=== PATIENT | female | born 1985 | race American Indian/Alaskan Native ===

== ENCOUNTER 2017-02-12 10:12 | Emergency (ER) | payer SELFPAY ==
[2017-02-12 10:22] VITALS: BP 138/101
[2017-02-12] MEDS ORDERED: FUL-GLO OP ONE (13:19)
[2017-02-12] MEDS ORDERED: FIORICET PO ONE (13:19)
[2017-02-12] MEDS ORDERED: TETRACAINE 0.5% OU STA (13:19)
[2017-02-12 13:54] LABS: Basophils % (Auto) 0.7 % (0.0-1.8); Eosinophils % (Auto) 3.1 % (0.0-4.3); Hematocrit 37.9 % (30.3-42.9); Hemoglobin 12.4 gm/dl (10.1-14.3); Mean Corpuscular HGB Conc 33 % (30-34); Mean Corpuscular Hemoglobin 28 pg (28-32); Mean Corpuscular Volume 85 fl (79-97); Platelet Count 319 K/mm3 (140-440); Red Blood Count 4.45 M/mm3 (3.65-5.03); Red Cell Distribution Width 12.5 % (13.2-15.2); White Blood Count 6.9 K/mm3 (4.5-11.0)
[2017-02-12 14:10] LABS: Alanine Aminotransferase 10 units/L (7-56); Albumin 3.4 g/dL (3.9-5); Albumin/Globulin Ratio 1.5 %; Alkaline Phosphatase 47 units/L (35-129); Anion Gap 15 mmol/L; Blood Urea Nitrogen 8 mg/dL (7-17); Calcium 8.6 mg/dL (8.4-10.2); Carbon Dioxide 24 mmol/L (22-30); Chloride 104.3 mmol/L (98-107); Glucose 96 mg/dL (65-100); Potassium 4.8 mmol/L (3.6-5.0); Sodium 138 mmol/L (137-145); Total Protein 5.7 g/dL (6.3-8.2)
--- NOTE | 2017-02-12 14:30 | Cat Scan Report ---
FINAL REPORT PROCEDURE: CT HEAD/BRAIN WO CON TECHNIQUE: Computerized tomography of the head was performed without contrast material. HISTORY: headache x 2 weeks COMPARISON: No prior studies are available for comparison. FINDINGS: Trace mucosal thickening is seen in the right sphenoid sinus. Mastoid air cells appear clear. No calvarial fracture is seen. Cerebral ventricles are normal in size. No acute intracranial hemorrhage or mass effect is seen. No CVA is seen. IMPRESSION: No intracranial abnormality is seen. There may be very minimal changes of chronic sphenoid sinusitis.
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
== END 2017-02-12 15:50 | disposition home or self-care (01) ==
LOC: ED 10:12
DX: S05.01XA Injury of conjunctiva and corneal abrasion without foreign body, right eye, initial encounter (principal); K06.9 Disorder of gingiva and edentulous alveolar ridge, unspecified; J32.9 Chronic sinusitis, unspecified; Z87.891 Personal history of nicotine dependence; X58.XXXA Exposure to other specified factors, initial encounter; Y93.89 Activity, other specified; Y92.89 Other specified places as the place of occurrence of the external cause; Y99.8 Other external cause status
CPT/HCPCS: 36415; 70450; 80053; 84703; 85025; 99284

== ENCOUNTER 2017-02-27 20:10 | Emergency (ER) | payer OTHER ==
[2017-02-28] MEDS ORDERED: MOTRIN PO ONE (01:09)
[2017-02-28 01:13] LABS: Bilirubin,Urine NEG (Negative); Blood,Urine NEG (Negative); Ketones,Urine NEG (Negative); Leukocyte Esterase,Urine NEG (Negative); Nitrite,Urine NEG (Negative); Protein,Urine <15 mg/dL mg/dL (Negative); Urobilinogen,Urine < 2.0 mg/dL (<2.0); WBC,Urine < 1.0 /HPF (0.0-6.0)
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
[2017-02-28 03:46] VITALS: BP 142/98
== END 2017-02-28 03:46 | disposition home or self-care (01) ==
LOC: ED 20:10
DX: S13.4XXA Sprain of ligaments of cervical spine, initial encounter (principal); S39.012A Strain of muscle, fascia and tendon of lower back, initial encounter; Z87.891 Personal history of nicotine dependence; V89.2XXA Person injured in unspecified motor-vehicle accident, traffic, initial encounter; Y93.89 Activity, other specified; Y92.89 Other specified places as the place of occurrence of the external cause; Y99.8 Other external cause status
CPT/HCPCS: 70450; 72072; 72100; 72125; 81001; 81025; 99284

== ENCOUNTER 2017-09-01 09:05 | Emergency (ER) | payer SELFPAY ==
--- NOTE | 2017-09-01 11:32 | Emergency Department Report ---
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 female presents with body aches, sore throat, and right ear pain for 1 day. Patient states symptoms started yesterday. She was around a sick friend last week and felt fine until yesterday. She is taking OTC cold and flu medicine with minimal improvement. She woke up this morning with white discharge in right eye that went away as the day progressed. Denies chest pain, SOB, weakness, nausea, vomiting, and change in appetite. ED Review of Systems ROS: Stated complaint: SORE THROAT Other details as noted in HPI Constitutional: chills, fever Eyes: eye discharge (white discharge on right this morning). denies: eye pain, vision change ENT: ear pain (right ear), throat pain, congestion. denies: dental pain, hearing loss, epistaxis Respiratory: denies: cough, shortness of breath, wheezing Cardiovascular: denies: chest pain, palpitations Gastrointestinal: denies: abdominal pain, nausea, diarrhea Neurological: denies: headache, weakness, paresthesias ED Past Medical Hx - Past Medical History Hx GERD: Yes Hx Headaches / Migraines: Yes Additional medical history: Childbirth, eye irritation, abd mass - Surgical History Additional Surgical History: - Social History Smoking Status: Former Smoker Substance Use Type: None - Medications Home Medications: Home Medications Medication Instructions Recorded Confirmed Last Taken Type Dextromethorphn/Acetaminoph/Cp 20 ml PO PRN PRN 06/20/17 06/22/17 06/20/17 History [Vicks Nyquil Cold & Flu Liquid] Ibuprofen/Pseudoephedrine HCl 1 each PO Q6H PRN 06/20/17 06/22/17 06/20/17 History [Advil Cold & Sinus Caplet] Loratadine/Pseudoephedrine 1 tab PO DAILY 10/06/22/17 06/20/17 History [Claritin-D 24Hr] Aspirin [Aspirin TAB] 650 mg PO QDAY 06/22/17 06/22/17 06/21/17 History HYDROcodone/APAP 5-325 [Sidney 1 each PO Q6HR PRN #20 tablet 06/22/17 Unknown Rx 5/325] Ibuprofen [Motrin] 800 mg PO Q8HR PRN #30 tablet 06/22/17 Unknown Rx Naproxen [Naprosyn] 500 mg PO BID 06/22/17 06/22/17 1 Week Ago History ~06/15/17 Amoxicillin/Potassium Clav 1 each PO BID 7 Days #14 tablet 09/01/17 Unknown Rx [Augmentin 875-125 Tablet] Benzonatate 200 mg PO TID PRN #30 capsule 09/01/17 Unknown Rx Fluticasone [Flonase] 1 spray NS QDAY #1 bottle 09/01/17 Unknown Rx Minor Respiratory Exam - Exam General: Vital signs noted. No distress. Alert and acting appropriately. HEENT: Yes Pharyngeal Erythema, Yes Moist Mucous Membranes, Yes Rhinorrhea, Yes Frontal Tenderness (bilaterally on palpation), No Pharyngeal Exudates, No Conjuctival Injection, No Maxillary Tenderness Ear: Neither TM Bulge, Neither TM Erythema, Neither EAC Pain, Neither EAC Discharge Neck: Yes Supple, No Adenopathy Lungs: Yes Good Air Exchange, Yes Cough, No Wheezes, No Ronchi, No Stridor, No Labored Respirations, No Retractions, No Use of Accessory Muscles, No Other Abnormal Lung Sounds Heart: Yes Regular, No Murmur Abdomen: Yes Normal Bowel Sounds, No Tenderness, No Peritoneal Signs Skin: No Rash, No Edema Neurologic: Alert and oriented, no deficits. Musculoskeletal: Unremarkable. ED Course Vital Signs 09/01/17 09:31 Temperature 99.1 F Pulse Rate 99 H Respiratory 20 Rate Blood Pressure 144/86 O2 Sat by Pulse 100 Oximetry ED Medical Decision Making - Medical Decision Making This is a 32 y.o. female presents with congestion, body aches, right ear pain for 1 day. Taking OTC cold and flu medication. Reports feeling as though something is stuck in her throat. VS WNL Rapid influenza negative, Rapid Strep negative Frontal Sinusitis: Started on augmentin, flonase, and benzonatate. F/U with PCP. Return to ER if fever, SOB, wheezing, chest pain, or symptoms are not improving. Critical care attestation.: If time is entered above; I have spent that time in minutes in the direct care of this critically ill patient, excluding procedure time. ED Disposition Clinical Impression: Acute frontal sinusitis Qualifiers: Recurrence: non-recurrent Qualified Code(s): J01.10 - Acute frontal sinusitis, unspecified Disposition: TO HOME OR SELFCARE Is pt being admited?: No Does the pt Need Aspirin: No Condition: Stable Instructions: Sinusitis (ED) Additional Instructions: Increase fluid intake. Wash hands frequently to decrease the spread of infection. Take tylenol or ibuprofen to control fever. Follow up with Primary Care Provider if symptoms are not improving. Return to ER if chest pain, fever, abdominal pain, SOB, wheezing, or difficulty breathing. Prescriptions: Amoxicillin/Potassium Clav [Augmentin 875-125 Tablet] 1 each PO BID 7 Days #14 tablet Benzonatate 200 mg PO TID PRN #30 capsule PRN Reason: Cough Fluticasone [Flonase] 1 spray NS QDAY #1 bottle Referrals: STARLA GEORGE MD [Primary Care Provider] - 3-5 Days [facility] [Outside] - 3-5 Days [facility] [Outside] - 3-[address] [facility] [Outside] - 3-5 Days Forms: Work/School Release Form(ED) Time of Disposition: 12:25 Print Language: CITIZEN OF [place]
[2017-09-01 13:08] VITALS: BP 138/86
== END 2017-09-01 13:09 | disposition home or self-care (01) ==
LOC: ED 09:05
DX: J01.10 Acute frontal sinusitis, unspecified (principal); K59.00 Constipation, unspecified; G43.909 Migraine, unspecified, not intractable, without status migrainosus
CPT/HCPCS: 87116; 87400; 87430; 99282

== ENCOUNTER 2019-06-05 17:03 | Emergency (ER) | payer OTHER ==
--- NOTE | 2019-06-05 17:23 | Emergency Department Report ---
Blank Doc - Documentation Documentation: 34-year-old female that presents with URI symptoms. Stated is 25 weeks pregna nt. Denies any other symptoms. Denies vaginal bleeding or pelvic pain. This initial assessment/diagnostic orders/clinical plan/treatment(s) is/are subject to change based on patient's health status, clinical progression and re- assessment by fellow clinical providers in the ED. Further treatment and workup at subsequent clinical providers discretion. Patient/guardians urged not to elope from the ED as their condition may be serious if not clinically assessed and managed. Initial orders include: 1- Patient sent to [facility] for further evaluation and treatment
== END 2019-06-05 18:26 | disposition left against medical advice (07) ==
LOC: ED 17:03
DX: R09.81 Nasal congestion (principal); Z53.21 Procedure and treatment not carried out due to patient leaving prior to being seen by health care provider

== ENCOUNTER 2019-07-14 10:07 | Inpatient (IN) | payer MEDICAID ==
[2019-07-14] MEDS ORDERED: hydrALAZINE 20 MG/1 ML INJ ONE (10:26)
[2019-07-14] MEDS ORDERED: METOCLOPRAMIDE 10 MG/2 ML INJ ONE (10:40)
[2019-07-14] MEDS ORDERED: OXYTOCIN 20 UNIT/1000ML DRIP 40,000 MILLIUNITS/2,000 ML BAG IV ONE (10:40)
[2019-07-14] MEDS ORDERED: BICITRA ORAL LIQD 30ML ONE (10:40)
[2019-07-14] MEDS ORDERED: FAMOTIDINE 20 MG/2 ML INJ IV ONE (10:40)
[2019-07-14] MEDS ORDERED: ceFAZolin/Water 2 GM/20 ML 2 GM/20 ML SYRINGE IV ONE (10:40)
[2019-07-14] MEDS ORDERED: SODIUM CHLORIDE 0.9% 500 ML 500 ML IV SCH (10:42)
[2019-07-14 10:43] LABS: Hematocrit 32.5 % (30.3-42.9); Hemoglobin 10.5 gm/dl (10.1-14.3); Mean Corpuscular HGB Conc 32 % (30-34); Mean Corpuscular Volume 89 fl (79-97); Platelet Count 162 K/mm3 (140-440); Red Blood Count 3.64 M/mm3 (3.65-5.03); Red Cell Distribution Width 13.3 % (13.2-15.2)
[2019-07-14] MEDS ORDERED: BICITRA ORAL LIQD 30ML PO SCH (10:44)
[2019-07-14] MEDS ORDERED: FAMOTIDINE 20 MG/2 ML INJ IV SCH (10:44)
[2019-07-14] MEDS ORDERED: METOCLOPRAMIDE 10 MG/2 ML INJ IV SCH (10:44)
[2019-07-14] MEDS ORDERED: LACTATED RINGERS 2,000 ML ONE (10:45)
--- NOTE | 2019-07-14 10:48 | History and Physical Report ---
History of Present Illness Date of examination: 07/14/19 Chief complaint: abdominal pain History of present illness: Pt is a 34 year old -[place] female AIME 09/15/18 at 31w0d pr esents with sudden onset of severe constant abdominal pain over her abdomen since 2 am this morning. She denies vaginal bleeding or leakage of fluid. She presents this morning after 10 am because she did not have anyone to watch her older son. She has had care with Dr Bhandari which she reports was uncomplicated until this past Monday when she was told she had gestational diabetes. She does report being hospitalized earlier this week because of her blood pressure but she was discharged home. Unable to auscultate heart tones. STAT ultrasound ordered. No heart tones noted. Large hematoma visible on ultrasound. Past History Past Medical History: diabetes (gestational ) Past Surgical History: section, other (ovarian cystectomy ) Family/Genetic History: heart disease Social history: no significant social history - Obstetrical History Expected Date of Delivery: 09/15/19 Actual Gestation: 31 Week(s) 0 Day(s) : 3 Para: 1 Hx # Term Pregnancies: 1 Number of Pregnancies: 0 Spontaneous Abortions: 1 Induced : 0 Number of Living Children: 1 Medications and Allergies Allergies Allergy/AdvReac Type Severity Reaction Status Date / Time No Known Allergies Allergy Verified 06/20/17 11:15 Home Medications Medication Instructions Recorded Confirmed Last Taken Type Dextromethorphn/Acetaminoph/Cp 20 ml PO PRN PRN 06/20/17 06/22/17 06/20/17 History [Vicks Nyquil Cold & Flu Liquid] Ibuprofen/Pseudoephedrine HCl 1 each PO Q6H PRN 06/20/17 06/22/17 06/20/17 History [Advil Cold & Sinus Caplet] Loratadine/Pseudoephedrine 1 tab PO DAILY 06/20/17 06/22/17 06/20/17 History [Claritin-D 24Hr] Aspirin [Aspirin TAB] 650 mg PO QDAY 06/22/17 06/22/17 06/21/17 History HYDROcodone/APAP 5-325 [Campbell 1 each PO Q6HR PRN #20 tablet 06/22/17 Unknown Rx 5/325] Ibuprofen [Motrin] 800 mg PO Q8HR PRN #30 tablet 06/22/17 Unknown Rx Naproxen [Naprosyn] 500 mg PO BID 06/22/17 06/22/17 1 Week Ago History ~06/15/17 Amoxicillin/Potassium Clav 1 each PO BID 7 Days #14 tablet 09/01/17 Unknown Rx [Augmentin 875-125 Tablet] Benzonatate 200 mg PO TID PRN #30 capsule 09/01/17 Unknown Rx Fluticasone [Flonase] 1 spray NS QDAY #1 bottle 09/01/17 Unknown Rx Active Meds: Active Medications Sodium Chloride (Nacl 0.9% 500 Ml) 500 mls @ 0 mls/hr IV ONCE ONE Stop: 07/14/19 10:43 Review of Systems All systems: negative - Vital Signs Vital signs: Vital Signs Pulse Pulse Ox 63 98 07/14/19 10:09 07/14/19 10:09 Temp Pulse Resp BP Pulse Ox 57 L 179/99 98 07/14/19 10:12 07/14/19 10:12 07/14/19 10:09 - Physical Exam Breasts: Positive: deferred Cardiovascular: Regular rate Lungs: Positive: Clear to auscultation Abdomen: Positive: tenderness, guarding. Negative: soft Genitourinary (Female): Positive: normal external genitalia Uterus: Positive: enlarged, tender Extremities: Positive: edema (2+) - Obstetrical FHR: other (No heart tones ) Uterine Contraction Monitor Mode: External Uterine Contraction Pattern: Irregular Results Result Diagrams: 07/14/19 10:15 Abnormal lab results 07/14/19 Range/Units 10:15 WBC 16.2 H (4.5-11.0) K/mm3 RBC 3.64 L (3.65-5.03) M/mm3 All other labs normal. Assessment and Plan A: IUP at 31w0d Placental Abruption Demise Severe Preeclampsia Previous x 1 P: Admit to labor and delivery CBC, Coags, Fibrinogen, Panel Prepare for repeat section and other indicated procedures.
[2019-07-14] MEDS ORDERED: LACTATED RINGERS 1,000 ML IV SCH ×2 (11:00→14:00)
[2019-07-14] MEDS ORDERED: ceFAZolin/Water 2 GM/20 ML 2 GM/20 ML SYRINGE IV NR (11:00)
[2019-07-14] MEDS ORDERED: OXYTOCIN 20 UNIT/1000ML DRIP 20 UNITS/1,000 ML BAG IV SCH ×2 (11:00→14:00)
--- NOTE | 2019-07-14 11:10 | Anesthesia Consultation ---
Anesthesia Consult and Med Hx Date of service: 07/14/19 - Airway Anesthetic Teeth Evaluation: Good ROM Head & Neck: Adequate Mental/Hyoid Distance: Adequate Mallampati Class: Class II Intubation Access Assessment: Probably Good - Pulmonary Exam CTA: Yes - Cardiac Exam Cardiac Exam: RRR - Pre-Operative Health Status ASA Pre-Surgery Classification: ASA3, Emergency Proposed Anesthetic Plan: Spinal Nerve Block: abdominal wall - Pulmonary Hx Smoking: Yes (former, quit 4 years ago) - Cardiovascular System Hx Hypertension: Yes (PIH) - Central Nervous System Hx Psychiatric Problems: No - Other Systems Hx Alcohol Use: Yes (occas) Hx Cancer: No - Additional Comments Anesthesia Medical History Comments: Abruption/ demise
--- NOTE | 2019-07-14 11:11 | Anesthesia Day of Surgery ---
Anesthesia Day of Surgery - Day of Surgery Patient Examined: Yes Patient H&P Reviewed: Yes Patient is NPO: Yes
--- NOTE | 2019-07-14 11:13 | Ultrasound Report ---
ULTRASOUND OBSTETRIC INDICATION / CLINICAL INFORMATION: Heart Tones. Clinical Gestational Age (GA): 31 weeks 0 days TECHNIQUE: Transabdominal. COMPARISON: None available. FINDINGS: There is a single intrauterine . Fetus in cephalic presentation. Heart Rate: 0 beats per minute. Placenta: anterior IMPRESSION: Absence of cardiac activity, diagnostic of demise. Signer Name: Jose E Simmons MD Signed: 07/14/2019 11:09 AM Workstation Name: [id number]
[2019-07-14] MEDS ORDERED: MORPHINE 2 MG/1 ML INJ ONE (11:40)
[2019-07-14] MEDS ORDERED: CARBOPROST TROMETHAMINE 250 MCG/1 ML INJ IM ONE (12:02)
[2019-07-14] MEDS ORDERED: miSOPROStol 200 MCG TAB ONE (12:03)
[2019-07-14] MEDS ORDERED: WATER FOR IRRIG STERILE 1,500 ML BOTTLE IR ONE (12:08)
[2019-07-14] MEDS ORDERED: SODIUM CHLORIDE 0.9% IRR 1,500 ML BOTTLE IR ONE (12:08)
[2019-07-14] MEDS ORDERED: MORPHINE 2 MG/1 ML INJ IV ONE (12:36)
--- NOTE | 2019-07-14 13:17 | Operative Report ---
Operative Report Operative Report: Date of procedure: July 14, 2019 Preoperative diagnosis: 1) IUP at 31w0d 2) Placental Abruption 3) Intrauterine Demise 4) Preeclampsia with severe features 5) Previous x 1 Postoperative diagnosis: Same Procedure: Repeat low transverse section Surgeon: Annette Alva M.D. Anesthesia: General endotracheal anesthesia Findings: 1) Non-Viable female , Apgars 0 and 0, weight 1345g, (2 lb 15 oz) in cephalic presentation 2) Blood-tinged peritoneal fluid 3) Couvelaire uterus 4) Normal-appearing ovaries and tubes 5) Uterine cavity filled with clot Estimated blood loss: 1500 mL IV fluids: 1500 mL crystalloid, 500 mL Hetastarch Urine output: 5 mL, blood tinged end of the procedure Drains: Bobby to gravity Specimens: Placenta to pathology Counts correct x 3 Disposition: Stable to PACU Indication for procedure: Pt is a 34 year old at 31w0d with a h/o one prior section presents with severe abdominal pain and elevated blood pressure with findings of preeclampsia with severe features, placental abruption and intrauterine demise. The decision was made to proceed with delivery. Operation in detail: After the risks, benefits, alternatives and complications were explained to the patient she gave informed consent for the procedure. She was subsequently taken to the operating room. A bobby catheter was placed and she was subsequently placed in the dorsal supine position and prepped and draped in a normal sterile fashion. At this time general anesthesia was noted to be adequate. A timeout was performed. A Pfannenstiel skin incision was made with the knife and carried down to the layer of the fascia with the Bovie. The fascia was incised in the midline and the fascial incision was extended bilaterally with the Bovie. The fascial incision was then stretched. The rectus muscles were then in the midline and partially transected for adequate visualization. The peritoneum was then entered sharply. The peritoneal incision was extended with good visualization of the bladder. Egress of blood tinged peritoneal fluid and a Couvelaire uterus were noted. The peritoneal incision was then stretched. An Michael retractor was placed. The bladder blade was placed. The vesicouterine peritoneum was grasped with smooth pickups and incised with Metzenbaum scissors. Metzenbaum scissors were used to extend the incision bilaterally. The bladder flap was then created digitally and the bladder blade was replaced. A transverse incision was made in the lower uterine segment with a knife and extended bilaterally with the bandage scissors with egress of blood clots. The head was delivered without difficulty followed by shoulders and body.The cord was clamped and cut and the was handed to NICU staff in attendance. The placenta was then delivered manually. The uterus was exteriorized and then cleared of all clots and debris. The uterus was noted to be atonic so an additional 20 units of pitocin was added to the IVFs with appropriate response. The hysterotomy was then reapproximated with 0 Vicryl in a running locked fashion. A second layer of the same suture was used in imbricating fashion. The hysterotomy was inspected and hemostasis was noted. The uterus was placed back into the peritoneal cavity and the gutters were irrigated and cleared of all clots and debris. The hysterotomy was again inspected and noted to be hemostatic. Surgicel was placed over the hysterotomy. Hemoblast was placed over the anterior surface of the uterus. The Michael retractor was removed. The peritoneum was reapproximated with 2-0 Vicryl in a running fashion incorporating the rectus muscles. The fascia was reapproximated with 0 Vicryl in a running fashion. The skin was reapproximated with nury. The incision was then covered with a pressure dressing. The procedure was then ended. The patient tolerated the procedure well and was extubated then taken to the PACU in stable condition. All instrument, lap, and needle counts were correct 3.
--- NOTE | 2019-07-14 13:17 | Procedure Note ---
OB Delivery Note - Delivery Date of Delivery: 07/14/19 Surgeon: GERMAN COSTELLO Estimated blood loss: other - Section Preop diagnosis: repeat , other (IUFD, Preeclampsia, Placental Abruption ) Postop diagnosis: same section procedure: section, repeat low transverse Disposition: PACU Narrative: Please see operative report. - Infant A at 1 minute: 0 at 5 minutes: 0 Gender: Female (1345g (2lb 15 oz) @ 1210 pm)
[2019-07-14] MEDS ORDERED: hydrALAZINE 20 MG/1 ML INJ IV PRN (13:40)
[2019-07-14] MEDS ORDERED: NALOXONE 0.4 MG/1 ML INJ IV PRN (13:47)
[2019-07-14] MEDS ORDERED: oxyCODONE /ACETAMINOPHEN 5-325MG TAB PO PRN (13:47)
[2019-07-14] MEDS ORDERED: ONDANSETRON 4 MG/2 ML INJ IV PRN (13:47)
[2019-07-14] MEDS ORDERED: SIMETHICONE 80 MG CHEW TAB PO PRN ×2 (13:47→23:27)
[2019-07-14] MEDS ORDERED: LANOLIN/ZINC/DIMETHICONE (LANSINOH) 7 GM TP PRN (13:47)
[2019-07-14] MEDS ORDERED: MAGNESIUM HYDROXIDE (MOM) ORAL LIQD UDC PO PRN (13:47)
[2019-07-14] MEDS ORDERED: WITCH HAZEL/ GLYCERIN PAD TP PRN (13:47)
[2019-07-14] MEDS ORDERED: NalbUPHINE 10 MG/1 ML INJ IV PRN (13:48)
--- NOTE | 2019-07-14 13:54 | Post Anesthesia Evaluation ---
- Post Anesthesia Evaluation Patient Participated: Yes Airway Patent: Yes Stable Respiratory Function: Yes Nausea/Vomiting: No Temp > 96.8F: Yes Pain Manageable: Yes Adequeate Hydration: Yes Anesthesia Complications: No
[2019-07-14] MEDS ORDERED: MAGNESIUM SULFATE 40GM/1000ML 40 GM/1,000 ML BAG IV SCH (14:00)
[2019-07-14] MEDS ORDERED: CALCIUM GLUCONATE 1000 MG/10 ML INJ IV ONE (14:00)
[2019-07-14] MEDS ORDERED: MAGNESIUM SULFATE 4 GM/100 ML BAG IV ONE (14:00)
[2019-07-14] MEDS ORDERED: ACETAMINOPHEN 325 MG TAB PO SCH (14:00)
[2019-07-14 18:52] LABS: Mean Corpuscular HGB Conc 32 % (30-34); Mean Corpuscular Volume 91 fl (79-97); Red Blood Count 2.03 M/mm3 (3.65-5.03); Red Cell Distribution Width 13.6 % (13.2-15.2)
[2019-07-14 19:00] LABS: Uric Acid 7.3 mg/dL (3.5-7.6)
[2019-07-14 19:02] LABS: INR 1.49 (0.87-1.13); Partial Thromboplastin Time 24.7 Sec. (24.2-36.6)
[2019-07-14 19:06] LABS: Hepatitis C Virus Antibody Non-Reactive (NonReactive)
[2019-07-14 19:37] LABS: Hemoglobin 5.8 gm/dl (10.1-14.3)
[2019-07-14 19:38] LABS: Hematocrit 18.4 % (30.3-42.9); Platelet Count 70 K/mm3 (140-440)
[2019-07-14 20:51] LABS: Bilirubin,Urine NEG (Negative); Blood,Urine MOD (Negative); Color,Urine Straw (Yellow); Mucus,Urine FEW /HPF; Urobilinogen,Urine < 2.0 mg/dL (<2.0)
[2019-07-14 21:25] LABS: Total Cells Counted 200
[2019-07-14 21:26] LABS: Basophils % (Manual) 0 % (0.0-1.8); Eosinophils % (Manual) 0 % (0.0-4.3); Large Platelets 1+; Nucleated Red Blood Cells 0.5 % (0.0-0.9); Platelet Estimate Appears Decreased
[2019-07-14 21:28] LABS: Anisocytosis 1+
[2019-07-14 21:29] LABS: Poikilocytosis 1+
[2019-07-14 21:30] LABS: Amphetamine Screen,Urine PRESUMPTIVE NEGATIVE; Cannabinoid Screen,Urine PRESUMPTIVE NEGATIVE; Cocaine Screen,Urine PRESUMPTIVE NEGATIVE; Methadone Screen,Urine PRESUMPTIVE NEGATIVE; Opiate Screen,Urine PRESUMPTIVE NEGATIVE
[2019-07-14 21:42] LABS: Benzodiazepines Screen,Urine PRESUMPTIVE POSITIVE
[2019-07-14 22:07] LABS: Mean Corpuscular HGB Conc 32 % (30-34); Mean Corpuscular Volume 90 fl (79-97); Red Cell Distribution Width 13.4 % (13.2-15.2)
[2019-07-14 22:17] LABS: INR 1.22 (0.87-1.13); Partial Thromboplastin Time 27.3 Sec. (24.2-36.6)
[2019-07-14 22:19] LABS: Hemoglobin 5.8 gm/dl (10.1-14.3); Platelet Count 71 K/mm3 (140-440)
--- NOTE | 2019-07-14 22:44 | Event Note ---
Date: 07/14/19 Late entry. Contacted by RN regarding hemoglobin and hematocrit 5.8/18. Repeat H/H to assess validity of values. Repeat Hemoglobin and Hematocrit 5.8/18.0. Pt previously typed and crossed for 4 units. Plan to transfuse 2 units of PRBCs and then reassess. Pt now with thrombocytopenia as well. Concern for development of DIC. Plan to order hematology consult and monitor clinical status closely.
[2019-07-14] MEDS ORDERED: MORPHINE 2 MG/1 ML INJ IV PRN (23:57)
[2019-07-14] MEDS ORDERED: MORPHINE 4 MG/1 ML INJ IV ONE (23:57)
[2019-07-15] MEDS ORDERED: HYDROcodone/ACETAMINOPHEN 5-325 MG TAB ONE (00:01)
[2019-07-15] MEDS: PREGABALIN 75 MG CAP PO SCH ×2 (00:51→22:00)
[2019-07-15] MEDS: D5W/LACTATED RINGERS 1,000 ML IV SCH ×2 (03:23→16:30)
[2019-07-15] MEDS ORDERED: MEASLES, MUMPS & RUBELLA 12,500 UNIT/0.5 ML VACCINE SUB-Q ONE (06:00)
[2019-07-15] MEDS ORDERED: TETANUS,DIPH,PERTUSS(ACELL) VACCINE 0.5 ML SYRINGE IM ONE (06:00)
[2019-07-15 06:44] LABS: Hematocrit 27.4 % (30.3-42.9); Hemoglobin 8.2 gm/dl (10.1-14.3); Mean Corpuscular HGB Conc 30 % (30-34); Mean Corpuscular Volume 96 fl (79-97); Red Blood Count 2.87 M/mm3 (3.65-5.03); Red Cell Distribution Width 14.7 % (13.2-15.2)
[2019-07-15 06:45] LABS: Platelet Count 70 K/mm3 (140-440)
[2019-07-15 06:49] LABS: INR 1.14 (0.87-1.13)
[2019-07-15 06:52] LABS: Partial Thromboplastin Time 20.5 Sec. (24.2-36.6)
[2019-07-15] MEDS ORDERED: HYDROcodone/ACETAMINOPHEN 5-325 MG TAB PO PRN (07:11)
[2019-07-15] MEDS ORDERED: oxyCODONE /ACETAMINOPHEN 5-325MG TAB PO PRN (09:33)
[2019-07-15] MEDS ORDERED: WITCH HAZEL/ GLYCERIN PAD TP PRN (09:33)
[2019-07-15] MEDS ORDERED: PROMETHAZINE 25 MG TAB PO PRN (09:33)
[2019-07-15] MEDS ORDERED: MAGNESIUM HYDROXIDE (MOM) ORAL LIQD UDC PO PRN (09:33)
[2019-07-15] MEDS ORDERED: diphenhydrAMINE 25 MG CAP PO PRN (09:33)
[2019-07-15] MEDS ORDERED: PROMETHAZINE 25 MG RECT SUPP PR PRN (09:33)
[2019-07-15] MEDS ORDERED: ACETAMINOPHEN 325 MG TAB PO PRN (09:33)
[2019-07-15] MEDS ORDERED: LANOLIN/ZINC/DIMETHICONE (LANSINOH) 7 GM TP PRN (09:33)
[2019-07-15] MEDS ORDERED: ONDANSETRON 4 MG/2 ML INJ IV PRN (09:33)
[2019-07-15 09:37] LABS: Basophils % (Manual) 0 % (0.0-1.8); Eosinophils % (Manual) 0 % (0.0-4.3); Total Cells Counted 100
[2019-07-15 09:38] LABS: Anisocytosis 1+; Giant Platelets Rare; Large Platelets Rare; Ovalocytes Few; Platelet Estimate Consistent w Auto; Schistocytes Rare
[2019-07-15 12:25] LABS: Calcium 6.8 mg/dL (8.4-10.2)
[2019-07-15] MEDS: DOCUSATE SODIUM 100 MG CAP PO SCH ×2 (12:46→22:00)
[2019-07-15] MEDS: SENNOSIDES/DOCUSATE SODIUM 8.6/50 MG TAB PO SCH (12:47)
[2019-07-15] MEDS: HYDROcodone/ACETAMINOPHEN 5-325 MG TAB PO PRN ×2 (16:17→22:15)
--- NOTE | 2019-07-15 17:30 | Progress Note ---
Assessment and Plan - Patient Problems (1) Severe preeclampsia Current Visit: Yes Status: Acute Plan to address problem: will continue to monitor on L&D initiate oral labetalol (2) Leukocytosis Current Visit: Yes Status: Acute Plan to address problem: start IV unasyn recheck cbc in am remains thrombocytopenic however no active bleeding Subjective - Subjective Date of service: 07/15/19 Interval history: Patient having improvement in symptoms. Patient has had to receive IV hydralazine for elevated blood pressures. WBC 33K however patient remains afebrile. Patient has completed 24hrs of magnesium. Urine output is improved Patient reports: no appetite normal, no voiding normally [place]: Objective - Vital Signs Latest vital signs: Vital Signs Temp Pulse Resp BP BP Pulse Ox 07/15/19 17:27 97 H 175/85 07/15/19 17:23 97 H 100 07/15/19 17:18 92 H 100 07/15/19 17:13 94 H 99 07/15/19 17:10 67 58 L 07/15/19 17:08 109 H 100 07/15/19 17:05 106 H 93 07/15/19 17:03 111 H 97 07/15/19 16:58 112 H 93 07/15/19 16:57 107 H 88 07/15/19 16:53 108 H 100 07/15/19 16:48 98 H 100 07/15/19 16:43 99 H 100 07/15/19 16:39 101 H 94 07/15/19 16:38 107 H 99 07/15/19 16:33 105 H 100 07/15/19 16:28 99 H 100 07/15/19 16:27 103 H 183/106 07/15/19 16:23 105 H 100 07/15/19 16:18 110 H 99 07/15/19 16:13 106 H 99 07/15/19 16:08 102 H 99 07/15/19 16:03 106 H 174/87 98 07/15/19 15:27 99 H 100 07/15/19 15:22 98 H 99 07/15/19 15:17 104 H 100 07/15/19 15:12 103 H 97 07/15/19 15:07 113 H 72 L 07/15/19 15:02 107 H 77 L 07/15/19 15:00 109 H 85 07/15/19 14:57 102 H 170/94 100 07/15/19 14:55 102 H 93 07/15/19 14:52 105 H 99 07/15/19 14:47 100 H 99 07/15/19 14:45 102 H 94 07/15/19 14:42 99 H 100 07/15/19 14:37 96 H 99 07/15/19 14:32 99 H 98 07/15/19 14:29 90 07/15/19 14:27 97 H 179/88 98 07/15/19 14:22 91 H 98 07/15/19 14:17 91 H 98 07/15/19 14:12 92 H 99 07/15/19 14:07 91 H 100 07/15/19 14:02 88 99 07/15/19 13:57 90 162/89 99 07/15/19 13:52 93 H 100 07/15/19 13:50 91 H 166/89 07/15/19 13:47 94 H 86 07/15/19 13:40 101 H 99 07/15/19 13:36 169 H 73 L 07/15/19 13:35 97 H 97 07/15/19 13:27 98 H 94 07/15/19 13:26 96 H 100 07/15/19 13:24 90 142/77 07/15/19 13:21 71 80 L 07/15/19 13:18 86 139/78 07/15/19 13:17 59 L 84 07/15/19 13:16 94 H 98 07/15/19 13:13 90 167/90 07/15/19 13:11 50 L 78 L 07/15/19 13:08 90 100 07/15/19 13:06 86 186/100 07/15/19 13:03 86 100 07/15/19 12:58 68 89 07/15/19 12:57 84 188/102 88 07/15/19 12:52 91 H 100 07/15/19 12:51 89 195/104 07/15/19 12:49 94 H 94 07/15/19 12:47 86 100 07/15/19 12:42 86 100 07/15/19 12:37 94 H 100 07/15/19 12:32 95 H 100 07/15/19 12:27 94 H 100 07/15/19 12:22 92 H 100 07/15/19 12:17 92 H 100 07/15/19 12:12 98 H 100 07/15/19 12:08 97 H 93 07/15/19 12:07 98 H 100 07/15/19 12:02 94 H 98 07/15/19 11:57 90 99 07/15/19 11:52 92 H 99 07/15/19 10:57 86 180/102 07/15/19 10:45 88 100 07/15/19 10:40 85 76 L 07/15/19 10:38 83 74 L 07/15/19 10:35 90 100 07/15/19 10:30 99 H 71 L 07/15/19 10:27 83 176/94 07/15/19 09:52 94 H 162/88 07/15/19 09:36 82 167/89 07/15/19 09:21 82 173/90 99 07/15/19 09:06 82 162/87 07/15/19 08:51 82 165/92 07/15/19 08:36 79 161/94 07/15/19 08:21 81 153/87 07/15/19 08:06 77 158/87 07/15/19 07:51 75 163/86 07/15/19 07:36 82 161/84 07/15/19 07:21 86 157/80 07/15/19 07:06 80 164/84 07/15/19 06:51 82 142/68 07/15/19 06:36 76 164/68 07/15/19 05:36 74 150/88 07/15/19 05:21 74 151/87 07/15/19 05:06 74 152/90 07/15/19 04:51 76 146/83 07/15/19 04:36 75 149/85 07/15/19 04:21 85 135/80 07/15/19 04:06 77 144/81 07/15/19 03:51 75 144/83 07/15/19 03:36 73 143/78 07/15/19 03:22 81 150/82 07/15/19 03:06 78 152/99 07/15/19 02:51 75 145/92 07/15/19 02:48 75 100 07/15/19 02:43 72 100 07/15/19 02:38 76 100 07/15/19 02:36 81 151/94 07/15/19 02:33 74 100 07/15/19 02:28 88 99 07/15/19 02:22 75 99 07/15/19 02:21 76 144/90 07/15/19 02:17 75 100 07/15/19 02:12 76 100 07/15/19 02:07 77 99 07/15/19 02:06 76 144/91 07/15/19 02:02 77 99 07/15/19 01:57 73 100 07/15/19 01:52 84 100 07/15/19 01:51 75 149/95 07/15/19 01:47 74 100 07/15/19 01:42 71 100 07/15/19 01:37 71 100 07/15/19 01:36 76 157/100 07/15/19 01:32 77 99 07/15/19 01:27 83 100 07/15/19 01:22 72 100 07/15/19 01:21 75 163/95 07/15/19 01:17 76 100 07/15/19 01:06 83 141/85 07/15/19 00:58 75 146/87 07/15/19 00:51 76 156/91 07/15/19 00:36 78 101/56 07/15/19 00:32 18 07/15/19 00:27 78 100 07/15/19 00:22 77 99 07/15/19 00:21 78 132/81 07/15/19 00:17 78 99 07/15/19 00:12 79 100 07/15/19 00:07 76 100 07/15/19 00:06 81 133/79 07/15/19 00:02 76 100 07/14/19 23:57 74 100 07/14/19 23:52 80 100 07/14/19 23:51 76 140/83 07/14/19 23:47 74 100 07/14/19 23:42 91 H 98 07/14/19 23:37 77 100 07/14/19 23:35 82 137/85 07/14/19 23:32 83 100 07/14/19 23:27 80 100 07/14/19 23:22 81 100 07/14/19 23:17 83 100 07/14/19 23:12 90 100 07/14/19 23:07 78 99 07/14/19 23:02 81 99 07/14/19 23:01 18 07/14/19 22:57 78 100 07/14/19 22:52 87 100 07/14/19 22:47 82 100 07/14/19 22:42 94 H 100 07/14/19 22:35 86 100 07/14/19 22:30 85 100 07/14/19 22:25 81 100 07/14/19 22:20 79 100 07/14/19 22:15 86 100 07/14/19 22:10 86 100 07/14/19 22:05 97 H 100 07/14/19 22:01 106 H 84 07/14/19 22:00 97 H 100 07/14/19 21:55 95 H 100 07/14/19 21:50 87 100 07/14/19 21:45 96 H 100 07/14/19 21:40 89 100 07/14/19 21:35 86 100 07/14/19 21:30 84 100 07/14/19 21:25 83 100 07/14/19 21:20 86 100 07/14/19 21:15 85 100 07/14/19 21:10 99 H 100 07/14/19 21:05 86 100 07/14/19 21:00 97 H 100 07/14/19 20:55 82 99 07/14/19 20:50 88 100 07/14/19 20:45 79 100 07/14/19 20:40 85 100 07/14/19 20:35 79 100 07/14/19 20:30 84 100 07/14/19 20:25 93 H 100 07/14/19 20:20 88 100 07/14/19 20:15 86 100 07/14/19 20:10 95 H 100 07/14/19 20:05 85 100 07/14/19 20:00 90 100 07/14/19 19:55 92 H 100 07/14/19 19:49 86 100 07/14/19 19:44 96 H 100 07/14/19 19:40 98.1 F 86 18 129/63 07/14/19 19:39 89 100 07/14/19 19:34 89 100 07/14/19 19:29 110 H 98 07/14/19 19:28 100 H 91 07/14/19 19:24 89 129/63 100 07/14/19 19:19 85 100 07/14/19 19:16 101 H 89 07/14/19 19:14 87 100 07/14/19 19:09 91 H 100 07/14/19 19:04 91 H 100 07/14/19 18:59 94 H 100 07/14/19 18:54 94 H 100 07/14/19 18:49 99 H 100 07/14/19 18:44 87 100 07/14/19 18:43 97 H 87 07/14/19 18:40 85 117/62 07/14/19 18:39 86 100 07/14/19 18:34 83 100 07/14/19 18:30 93 H 83 L 07/14/19 18:29 91 H 100 07/14/19 18:24 88 115/59 100 07/14/19 18:23 91 H 94 07/14/19 18:19 82 100 07/14/19 18:14 82 98 07/14/19 18:03 79 100 07/14/19 17:58 80 100 07/14/19 17:53 83 100 07/14/19 17:48 78 100 07/14/19 17:43 79 100 07/14/19 17:38 75 100 07/14/19 17:33 83 100 Intake and Output 07/15/19 07/15/19 07/15/19 06:59 14:59 22:59 Intake Total 250 1300 Output Total 1800 Balance 250 -500 Intake: IV 1000 D5lr 1,000 ml @ 125 mls/ 1000 hr IV DIRECT [facility] Rx#: [id number] Oral 300 Blood Product 250 Leukoreduced Red Blood 250 Cells Unit [id number] Leukoreduced Red Blood 0 Cells Unit [id number] Output: Urine 1800 Indwelling Catheter 1800 Other: Total, Intake Amount 300 Total, Output Amount 800 - Labs Labs: Abnormal lab results 07/14/19 07/14/19 07/14/19 Range/Units 10:15 18:18 18:18 WBC (4.5-11.0) K/mm3 RBC (3.65-5.03) M/mm3 Hgb (10.1-14.3) gm/dl Hct (30.3-42.9) % Plt Count (140-440) K/mm3 Seg Neuts % (Manual) (40.0-70.0) % Lymphocytes % (Manual) (13.4-35.0) % Seg Neutrophils # Man (1.8-7.7) K/mm3 PT 17.8 H (12.2-14.9) Sec. INR 1.49 H (0.87-1.13) APTT (24.2-36.6) Sec. Fibrinogen 77 L* (211-480) mg/dl Sodium (137-145) mmol/L Chloride (98-107) mmol/L Carbon Dioxide (22-30) mmol/L BUN (7-17) mg/dL Creatinine 2.0 H (0.7-1.2) mg/dL Glucose (65-100) mg/dL Calcium (8.4-10.2) mg/dL Magnesium (1.7-2.3) mg/dL Lactate Dehydrogenase 431 H (91-180) units/L Crossmatch See Detail 07/14/19 07/14/19 07/14/19 Range/Units 18:18 18:18 21:38 WBC 26.7 H 31.0 H (4.5-11.0) K/mm3 RBC 2.03 L 2.00 L (3.65-5.03) M/mm3 Hgb 5.8 L* D 5.8 L* (10.1-14.3) gm/dl Hct 18.4 L* D 18.0 L* (30.3-42.9) % Plt Count 70 L 71 L (140-440) K/mm3 Seg Neuts % (Manual) 93.0 H (40.0-70.0) % Lymphocytes % (Manual) 6.0 L (13.4-35.0) % Seg Neutrophils # Man 24.8 H (1.8-7.7) K/mm3 PT (12.2-14.9) Sec. INR (0.87-1.13) APTT (24.2-36.6) Sec. Fibrinogen (211-480) mg/dl Sodium (137-145) mmol/L Chloride (98-107) mmol/L Carbon Dioxide (22-30) mmol/L BUN (7-17) mg/dL Creatinine (0.7-1.2) mg/dL Glucose (65-100) mg/dL Calcium (8.4-10.2) mg/dL Magnesium 4.50 H (1.7-2.3) mg/dL Lactate Dehydrogenase (91-180) units/L Crossmatch 07/14/19 07/15/19 07/15/19 Range/Units 21:38 06:07 06:27 WBC 33.9 H (4.5-11.0) K/mm3 RBC 2.87 L (3.65-5.03) M/mm3 Hgb 8.2 L (10.1-14.3) gm/dl Hct 27.4 L D (30.3-42.9) % Plt Count 70 L (140-440) K/mm3 Seg Neuts % (Manual) 95.0 H (40.0-70.0) % Lymphocytes % (Manual) 4.0 L (13.4-35.0) % Seg Neutrophils # Man 32.2 H (1.8-7.7) K/mm3 PT 15.3 H (12.2-14.9) Sec. INR 1.22 H 1.14 H (0.87-1.13) APTT 20.5 L (24.2-36.6) Sec. Fibrinogen (211-480) mg/dl Sodium (137-145) mmol/L Chloride (98-107) mmol/L Carbon Dioxide (22-30) mmol/L BUN (7-17) mg/dL Creatinine (0.7-1.2) mg/dL Glucose (65-100) mg/dL Calcium (8.4-10.2) mg/dL Magnesium (1.7-2.3) mg/dL Lactate Dehydrogenase (91-180) units/L Crossmatch 07/15/19 07/15/19 Range/Units 11:37 11:37 WBC (4.5-11.0) K/mm3 RBC (3.65-5.03) M/mm3 Hgb (10.1-14.3) gm/dl Hct (30.3-42.9) % Plt Count (140-440) K/mm3 Seg Neuts % (Manual) (40.0-70.0) % Lymphocytes % (Manual) (13.4-35.0) % Seg Neutrophils # Man (1.8-7.7) K/mm3 PT (12.2-14.9) Sec. INR (0.87-1.13) APTT (24.2-36.6) Sec. Fibrinogen (211-480) mg/dl Sodium 126 L (137-145) mmol/L Chloride 97.9 L (98-107) mmol/L Carbon Dioxide 11 L (22-30) mmol/L BUN 25 H (7-17) mg/dL Creatinine 2.2 H (0.7-1.2) mg/dL Glucose 159 H (65-100) mg/dL Calcium 6.8 L (8.4-10.2) mg/dL Magnesium 11.40 H (1.7-2.3) mg/dL Lactate Dehydrogenase (91-180) units/L Crossmatch
[2019-07-15] MEDS ORDERED: FAMOTIDINE 20 MG/2 ML INJ IV SCH ×2 (18:00→20:00)
[2019-07-15 21:38] LABS: Hemoglobin 8.1 gm/dl (10.1-14.3)
[2019-07-16] MEDS: AMPICILLIN/SULBACTA 3GM/100ML 3 GM/100 ML BAG IV SCH ×3 (01:31→21:47)
[2019-07-16] MEDS: ZOLPIDEM 5 MG TAB PO PRN (01:38)
[2019-07-16] MEDS: D5W/LACTATED RINGERS 1,000 ML IV SCH (07:08)
[2019-07-16 07:11] LABS: Basophils % (Auto) 0.1 % (0.0-1.8); Hemoglobin 6.2 gm/dl (10.1-14.3); Lymphocytes # (Auto) 1.4 K/mm3 (1.2-5.4); Lymphocytes % (Auto) 8.4 % (13.4-35.0); Mean Corpuscular HGB Conc 33 % (30-34); Mean Corpuscular Volume 89 fl (79-97); Monocytes # (Auto) 1.6 K/mm3 (0.0-0.8); Monocytes % (Auto) 9.6 % (0.0-7.3)
[2019-07-16 07:20] LABS: Platelet Count 94 K/mm3 (140-440)
[2019-07-16 07:22] LABS: Hematocrit 18.6 % (30.3-42.9)
[2019-07-16 08:06] LABS: Hemoglobin 6.1 gm/dl (10.1-14.3); Mean Corpuscular HGB Conc 33 % (30-34); Mean Corpuscular Volume 89 fl (79-97); Platelet Count 99 K/mm3 (140-440); Red Blood Count 2.09 M/mm3 (3.65-5.03); Red Cell Distribution Width 14.7 % (13.2-15.2)
[2019-07-16 08:08] LABS: Hematocrit 18.6 % (30.3-42.9)
--- NOTE | 2019-07-16 08:22 | Progress Note ---
Assessment and Plan A/P Subjective - Subjective Date of service: 07/16/19 Principal diagnosis: s/p iufd, repeat cesec Patient reports: appetite normal, voiding normally, pain well controlled, ambulating normally [place]: Objective - Vital Signs Latest vital signs: Vital Signs Temp Pulse Resp BP Pulse Ox 07/16/19 08:00 109 H 130/70 07/16/19 07:19 98.6 F 07/16/19 01:38 102 H 97 07/16/19 01:33 92 H 99 07/16/19 01:28 91 H 93 07/16/19 01:23 91 H 98 07/16/19 01:22 95 H 89 07/16/19 01:18 99 H 87 07/16/19 01:13 87 97 07/16/19 01:08 85 97 07/16/19 01:07 96 H 83 L 07/16/19 01:03 92 H 98 07/16/19 00:58 89 97 07/16/19 00:53 90 97 07/16/19 00:51 88 115/56 07/16/19 00:48 89 97 07/16/19 00:43 87 97 07/16/19 00:38 95 H 97 07/16/19 00:33 98 H 98 07/16/19 00:28 92 H 98 07/16/19 00:23 89 97 07/16/19 00:18 91 H 96 07/16/19 00:13 92 H 96 07/16/19 00:08 92 H 96 07/16/19 00:03 91 H 96 07/15/19 23:58 93 H 97 07/15/19 23:53 98 H 97 07/15/19 23:51 95 H 127/60 07/15/19 23:48 97 H 97 07/15/19 23:43 100 H 99 07/15/19 23:38 106 H 97 07/15/19 23:33 99 H 98 07/15/19 23:28 114 H 98 07/15/19 23:23 98 H 99 07/15/19 23:18 98 H 99 07/15/19 23:15 18 07/15/19 23:13 100 H 100 07/15/19 23:08 104 H 100 07/15/19 23:03 100 H 99 07/15/19 22:58 95 H 99 07/15/19 22:53 107 H 98 07/15/19 22:51 108 H 148/81 07/15/19 22:48 103 H 97 07/15/19 22:43 103 H 97 07/15/19 22:38 101 H 97 07/15/19 22:33 102 H 97 07/15/19 22:28 96 H 98 07/15/19 22:23 101 H 97 07/15/19 22:18 102 H 98 07/15/19 22:15 18 07/15/19 22:13 99 H 98 07/15/19 22:08 96 H 98 07/15/19 22:03 99 H 99 07/15/19 21:58 96 H 99 07/15/19 21:53 96 H 99 07/15/19 21:51 96 H 154/81 07/15/19 21:48 101 H 100 07/15/19 21:43 110 H 100 07/15/19 21:38 109 H 100 07/15/19 21:33 111 H 100 07/15/19 21:28 97 H 100 07/15/19 21:23 115 H 100 07/15/19 21:18 114 H 100 07/15/19 21:13 116 H 92 07/15/19 21:08 119 H 90 07/15/19 21:03 113 H 100 07/15/19 20:58 111 H 99 07/15/19 20:53 117 H 97 07/15/19 20:51 110 H 153/91 07/15/19 20:48 103 H 100 07/15/19 20:43 119 H 100 07/15/19 20:38 102 H 100 07/15/19 20:37 104 H 143/82 07/15/19 20:33 103 H 100 07/15/19 20:28 104 H 99 07/15/19 20:23 103 H 99 07/15/19 20:18 112 H 100 07/15/19 20:13 97 H 98 07/15/19 20:08 98 H 99 07/15/19 20:03 93 H 99 07/15/19 19:58 101 H 100 07/15/19 19:54 103 H 83 L 07/15/19 19:53 92 H 100 07/15/19 19:43 121 H 81 L 07/15/19 19:38 83 88 07/15/19 19:33 111 H 100 07/15/19 19:28 112 H 99 07/15/19 19:23 119 H 100 07/15/19 19:18 107 H 99 07/15/19 19:13 114 H 95 07/15/19 19:12 86 07/15/19 19:05 111 H 93 07/15/19 19:03 99 H 99 07/15/19 18:58 109 H 98 07/15/19 18:53 111 H 99 07/15/19 18:51 113 H 151/101 07/15/19 18:48 113 H 99 07/15/19 18:45 118 H 81 L 07/15/19 18:43 111 H 98 07/15/19 18:38 116 H 99 07/15/19 18:33 114 H 99 07/15/19 18:28 116 H 95 07/15/19 18:23 111 H 98 07/15/19 18:21 113 H 91 07/15/19 18:18 105 H 99 07/15/19 18:13 109 H 98 07/15/19 18:08 105 H 100 07/15/19 18:03 99 H 100 07/15/19 17:58 99 H 91 07/15/19 17:53 118 H 91 07/15/19 17:48 97 H 100 07/15/19 17:46 111 H 87 07/15/19 17:43 106 H 99 07/15/19 17:38 93 H 99 07/15/19 17:33 91 H 99 07/15/19 17:28 110 H 97 07/15/19 17:27 97 H 175/85 07/15/19 17:23 97 H 100 07/15/19 17:18 92 H 100 07/15/19 17:13 94 H 99 07/15/19 17:10 67 58 L 07/15/19 17:08 109 H 100 07/15/19 17:05 106 H 93 07/15/19 17:03 111 H 97 07/15/19 16:58 112 H 93 07/15/19 16:57 107 H 88 07/15/19 16:53 108 H 100 07/15/19 16:48 98 H 100 07/15/19 16:43 99 H 100 07/15/19 16:39 101 H 94 07/15/19 16:38 107 H 99 07/15/19 16:33 105 H 100 07/15/19 16:30 97.8 F 18 07/15/19 16:28 99 H 100 07/15/19 16:27 103 H 183/106 07/15/19 16:23 105 H 100 07/15/19 16:18 110 H 99 07/15/19 16:13 106 H 99 07/15/19 16:08 102 H 99 07/15/19 16:03 106 H 174/87 98 07/15/19 15:27 99 H 100 07/15/19 15:22 98 H 99 07/15/19 15:17 104 H 100 07/15/19 15:12 103 H 97 07/15/19 15:07 113 H 72 L 07/15/19 15:02 107 H 77 L 07/15/19 15:00 109 H 85 07/15/19 14:57 102 H 170/94 100 07/15/19 14:55 102 H 93 07/15/19 14:52 105 H 99 07/15/19 14:47 100 H 99 07/15/19 14:45 102 H 94 07/15/19 14:42 99 H 100 07/15/19 14:37 96 H 99 07/15/19 14:32 99 H 98 07/15/19 14:29 90 07/15/19 14:27 97 H 179/88 98 07/15/19 14:22 91 H 98 07/15/19 14:17 91 H 98 07/15/19 14:12 92 H 99 07/15/19 14:07 91 H 100 07/15/19 14:02 88 99 07/15/19 13:57 90 162/89 99 07/15/19 13:52 93 H 100 07/15/19 13:50 91 H 166/89 07/15/19 13:47 94 H 86 07/15/19 13:40 101 H 99 07/15/19 13:36 169 H 73 L 07/15/19 13:35 97 H 97 07/15/19 13:27 98 H 94 07/15/19 13:26 96 H 100 07/15/19 13:24 90 142/77 07/15/19 13:21 71 80 L 11/25/19 13:18 86 139/78 07/15/19 13:17 59 L 84 07/15/19 13:16 94 H 98 07/15/19 13:13 90 167/90 07/15/19 13:11 50 L 78 L 07/15/19 13:08 90 100 07/15/19 13:06 86 186/100 07/15/19 13:03 86 100 07/15/19 12:58 68 89 07/15/19 12:57 84 188/102 88 07/15/19 12:52 91 H 100 07/15/19 12:51 89 195/104 07/15/19 12:50 98 F 20 07/15/19 12:49 94 H 94 07/15/19 12:47 86 100 07/15/19 12:42 86 100 07/15/19 12:37 94 H 100 07/15/19 12:32 95 H 100 07/15/19 12:27 94 H 100 07/15/19 12:22 92 H 100 07/15/19 12:17 92 H 100 07/15/19 12:12 98 H 100 07/15/19 12:08 97 H 93 07/15/19 12:07 98 H 100 07/15/19 12:02 94 H 98 07/15/19 11:57 90 99 07/15/19 11:52 92 H 99 07/15/19 10:57 86 180/102 07/15/19 10:45 88 100 07/15/19 10:40 85 76 L 07/15/19 10:38 83 74 L 07/15/19 10:35 90 100 07/15/19 10:30 99 H 71 L 07/15/19 10:27 83 176/94 07/15/19 09:52 94 H 162/88 07/15/19 09:36 82 167/89 07/15/19 09:21 82 173/90 99 07/15/19 09:06 82 162/87 07/15/19 08:51 82 165/92 07/15/19 08:36 79 161/94 Intake and Output 07/15/19 07/16/19 07/16/19 23:59 07:59 15:59 Intake Total 1100 Output Total 2100 Balance -2100 1100 Intake: IV 1100 D5lr 1,000 ml @ 125 mls/ 1000 hr IV DIRECT [facility] Rx#: [id number] UNASYN/NS 3 GM/100 ML 3 100 gm In 100 ml @ 200 mls/hr IV Q6HR [facility] Rx#: [id number] Output: Urine 2100 Indwelling Catheter 2100 Other: Total, Output Amount 900 - Exam Breasts: Present: normal Cardiovascular: Present: Regular rate, Normal S1 Lungs: Present: Clear to auscultation, Normal air movement Abdomen: Present: normal appearance, soft, normal bowel sounds. Absent: distention, tenderness, guarding Vulva: both: normal Uterus: Present: normal, firm, fundal height below umbilicus. Absent: bogginess , tenderness Extremities: Present: normal Deep Tendon Reflex Grade: Normal +2 Incision: Present: normal, dry, intact - Labs Labs: Abnormal lab results 07/15/19 07/15/19 07/15/19 Range/Units 06:27 11:37 11:37 WBC 33.9 H (4.5-11.0) K/mm3 RBC 2.87 L (3.65-5.03) M/mm3 Hgb 8.2 L (10.1-14.3) gm/dl Hct 27.4 L D (30.3-42.9) % Plt Count 70 L (140-440) K/mm3 Lymph % (Auto) (13.4-35.0) % [place] % (Auto) (0.0-7.3) % [place] # (0.0-0.8) K/mm3 Seg Neutrophils % (40.0-70.0) % Seg Neuts % (Manual) 95.0 H (40.0-70.0) % Lymphocytes % (Manual) 4.0 L (13.4-35.0) % Seg Neutrophils # (1.8-7.7) K/mm3 Seg Neutrophils # Man 32.2 H (1.8-7.7) K/mm3 Sodium 126 L (137-145) mmol/L Chloride 97.9 L (98-107) mmol/L Carbon Dioxide 11 L (22-30) mmol/L BUN 25 H (7-17) mg/dL Creatinine 2.2 H (0.7-1.2) mg/dL Glucose 159 H (65-100) mg/dL Calcium 6.8 L (8.4-10.2) mg/dL Magnesium 11.40 H (1.7-2.3) mg/dL 07/15/19 07/16/19 07/16/19 Range/Units 21:04 06:46 07:49 WBC 16.9 H 17.2 H (4.5-11.0) K/mm3 RBC 2.10 L 2.09 L (3.65-5.03) M/mm3 Hgb 8.1 L 6.2 L 6.1 L (10.1-14.3) gm/dl Hct 25.0 L 18.6 L* D 18.6 L* (30.3-42.9) % Plt Count 94 L 99 L (140-440) K/mm3 Lymph % (Auto) 8.4 L (13.4-35.0) % [place] % (Auto) 9.6 H (0.0-7.3) % [place] # 1.6 H (0.0-0.8) K/mm3 Seg Neutrophils % 81.9 H (40.0-70.0) % Seg Neuts % (Manual) (40.0-70.0) % Lymphocytes % (Manual) (13.4-35.0) % Seg Neutrophils # 13.8 H (1.8-7.7) K/mm3 Seg Neutrophils # Man (1.8-7.7) K/mm3 Sodium (137-145) mmol/L Chloride (98-107) mmol/L Carbon Dioxide (22-30) mmol/L BUN (7-17) mg/dL Creatinine (0.7-1.2) mg/dL Glucose (65-100) mg/dL Calcium (8.4-10.2) mg/dL Magnesium (1.7-2.3) mg/dL
--- NOTE | 2019-07-16 08:25 | Progress Note ---
Assessment and Plan A/P POD2 IUFD [facility] severe anemia -s/p 4 u blood depsite still [address] abd and pelvis for acute process CXR- elevated wbc another 2u blood transfusion repeat cbc and cmp close monitor on L and D Subjective - Subjective Date of service: 07/16/19 Principal diagnosis: s/p iufd, repeat cesec Patient reports: appetite normal, voiding normally, pain well controlled, flatus : Objective - Vital Signs Latest vital signs: Vital Signs Temp Pulse Resp BP Pulse Ox 07/16/19 08:21 112 H 130/78 07/16/19 08:00 109 H 130/70 07/16/19 07:19 98.6 F 07/16/19 01:38 102 H 97 07/16/19 01:33 92 H 99 07/16/19 01:28 91 H 93 07/16/19 01:23 91 H 98 07/16/19 01:22 95 H 89 07/16/19 01:18 99 H 87 07/16/19 01:13 87 97 07/16/19 01:08 85 97 07/16/19 01:07 96 H 83 L 07/16/19 01:03 92 H 98 07/16/19 00:58 89 97 07/16/19 00:53 90 97 07/16/19 00:51 88 115/56 07/16/19 00:48 89 97 07/16/19 00:43 87 97 07/16/19 00:38 95 H 97 07/16/19 00:33 98 H 98 07/16/19 00:28 92 H 98 07/16/19 00:23 89 97 07/16/19 00:18 91 H 96 07/16/19 00:13 92 H 96 07/16/19 00:08 92 H 96 07/16/19 00:03 91 H 96 07/15/19 23:58 93 H 97 07/15/19 23:53 98 H 97 07/15/19 23:51 95 H 127/60 07/15/19 23:48 97 H 97 07/15/19 23:43 100 H 99 07/15/19 23:38 106 H 97 07/15/19 23:33 99 H 98 07/15/19 23:28 114 H 98 07/15/19 23:23 98 H 99 07/15/19 23:18 98 H 99 07/15/19 23:15 18 07/15/19 23:13 100 H 100 07/15/19 23:08 104 H 100 07/15/19 23:03 100 H 99 07/15/19 22:58 95 H 99 07/15/19 22:53 107 H 98 07/15/19 22:51 108 H 148/81 07/15/19 22:48 103 H 97 07/15/19 22:43 103 H 97 07/15/19 22:38 101 H 97 07/15/19 22:33 102 H 97 07/15/19 22:28 96 H 98 07/15/19 22:23 101 H 97 07/15/19 22:18 102 H 98 07/15/19 22:15 18 07/15/19 22:13 99 H 98 07/15/19 22:08 96 H 98 07/15/19 22:03 99 H 99 07/15/19 21:58 96 H 99 07/15/19 21:53 96 H 99 07/15/19 21:51 96 H 154/81 07/15/19 21:48 101 H 100 07/15/19 21:43 110 H 100 07/15/19 21:38 109 H 100 07/15/19 21:33 111 H 100 07/15/19 21:28 97 H 100 07/15/19 21:23 115 H 100 07/15/19 21:18 114 H 100 07/15/19 21:13 116 H 92 07/15/19 21:08 119 H 90 07/15/19 21:03 113 H 100 07/15/19 20:58 111 H 99 07/15/19 20:53 117 H 97 07/15/19 20:51 110 H 153/91 07/15/19 20:48 103 H 100 07/15/19 20:43 119 H 100 07/15/19 20:38 102 H 100 07/15/19 20:37 104 H 143/82 07/15/19 20:33 103 H 100 07/15/19 20:28 104 H 99 07/15/19 20:23 103 H 99 07/15/19 20:18 112 H 100 07/15/19 20:13 97 H 98 07/15/19 20:08 98 H 99 07/15/19 20:03 93 H 99 07/15/19 19:58 101 H 100 07/15/19 19:54 103 H 83 L 07/15/19 19:53 92 H 100 07/15/19 19:43 121 H 81 L 07/15/19 19:38 83 88 07/15/19 19:33 111 H 100 07/15/19 19:28 112 H 99 07/15/19 19:23 119 H 100 07/15/19 19:18 107 H 99 07/15/19 19:13 114 H 95 07/15/19 19:12 86 07/15/19 19:05 111 H 93 07/15/19 19:03 99 H 99 07/15/19 18:58 109 H 98 07/15/19 18:53 111 H 99 07/15/19 18:51 113 H 151/101 07/15/19 18:48 113 H 99 07/15/19 18:45 118 H 81 L 07/15/19 18:43 111 H 98 07/15/19 18:38 116 H 99 07/15/19 18:33 114 H 99 07/15/19 18:28 116 H 95 07/15/19 18:23 111 H 98 07/15/19 18:21 113 H 91 07/15/19 18:18 105 H 99 07/15/19 18:13 109 H 98 07/15/19 18:08 105 H 100 07/15/19 18:03 99 H 100 07/15/19 17:58 99 H 91 07/15/19 17:53 118 H 91 07/15/19 17:48 97 H 100 07/15/19 17:46 111 H 87 07/15/19 17:43 106 H 99 07/15/19 17:38 93 H 99 07/15/19 17:33 91 H 99 07/15/19 17:28 110 H 97 07/15/19 17:27 97 H 175/85 07/15/19 17:23 97 H 100 07/15/19 17:18 92 H 100 07/15/19 17:13 94 H 99 07/15/19 17:10 67 58 L 07/15/19 17:08 109 H 100 07/15/19 17:05 106 H 93 07/15/19 17:03 111 H 97 07/15/19 16:58 112 H 93 07/15/19 16:57 107 H 88 07/15/19 16:53 108 H 100 07/15/19 16:48 98 H 100 07/15/19 16:43 99 H 100 07/15/19 16:39 101 H 94 07/15/19 16:38 107 H 99 07/15/19 16:33 105 H 100 07/15/19 16:30 97.8 F 18 07/15/19 16:28 99 H 100 07/15/19 16:27 103 H 183/106 07/15/19 16:23 105 H 100 07/15/19 16:18 110 H 99 07/15/19 16:13 106 H 99 07/15/19 16:08 102 H 99 07/15/19 16:03 106 H 174/87 98 07/15/19 15:27 99 H 100 07/15/19 15:22 98 H 99 07/15/19 15:17 104 H 100 07/15/19 15:12 103 H 97 07/15/19 15:07 113 H 72 L 07/15/19 15:02 107 H 77 L 07/15/19 15:00 109 H 85 07/15/19 14:57 102 H 170/94 100 07/15/19 14:55 102 H 93 07/15/19 14:52 105 H 99 07/15/19 14:47 100 H 99 07/15/19 14:45 102 H 94 07/15/19 14:42 99 H 100 07/15/19 14:37 96 H 99 07/15/19 14:32 99 H 98 07/15/19 14:29 90 07/15/19 14:27 97 H 179/88 98 07/15/19 14:22 91 H 98 07/15/19 14:17 91 H 98 07/15/19 14:12 92 H 99 07/15/19 14:07 91 H 100 07/15/19 14:02 88 99 07/15/19 13:57 90 162/89 99 07/15/19 13:52 93 H 100 07/15/19 13:50 91 H 166/89 07/15/19 13:47 94 H 86 07/15/19 13:40 101 H 99 07/15/19 13:36 169 H 73 L 07/15/19 13:35 97 H 97 07/15/19 13:27 98 H 94 07/15/19 13:26 96 H 100 07/15/19 13:24 90 142/77 07/15/19 13:21 71 80 L 07/15/19 13:18 86 139/78 07/15/19 13:17 59 L 84 07/15/19 13:16 94 H 98 07/15/19 13:13 90 167/90 07/15/19 13:11 50 L 78 L 07/15/19 13:08 90 100 07/15/19 13:06 86 186/100 07/15/19 13:03 86 100 07/15/19 12:58 68 89 07/15/19 12:57 84 188/102 88 07/15/19 12:52 91 H 100 07/15/19 12:51 89 195/104 07/15/19 12:50 98 F 20 07/15/19 12:49 94 H 94 07/15/19 12:47 86 100 07/15/19 12:42 86 100 07/15/19 12:37 94 H 100 07/15/19 12:32 95 H 100 07/15/19 12:27 94 H 100 07/15/19 12:22 92 H 100 07/15/19 12:17 92 H 100 07/15/19 12:12 98 H 100 07/15/19 12:08 97 H 93 07/15/19 12:07 98 H 100 07/15/19 12:02 94 H 98 07/15/19 11:57 90 99 07/15/19 11:52 92 H 99 07/15/19 10:57 86 180/102 07/15/19 10:45 88 100 07/15/19 10:40 85 76 L 07/15/19 10:38 83 74 L 07/15/19 10:35 90 100 07/15/19 10:30 99 H 71 L 07/15/19 10:27 83 176/94 07/15/19 09:52 94 H 162/88 07/15/19 09:36 82 167/89 07/15/19 09:21 82 173/90 99 07/15/19 09:06 82 162/87 07/15/19 08:51 82 165/92 11/25/19 08:36 79 161/94 Intake and Output 07/15/19 07/16/19 07/16/19 23:59 07:59 15:59 Intake Total 1100 Output Total 2100 Balance -2099 1100 Intake: IV 1100 D5lr 1,000 ml @ 125 mls/ 1000 hr IV DIRECT CAMMY Rx#: [id number] UNASYN/NS 3 GM/100 ML 3 100 gm In 100 ml @ 200 mls/hr IV Q6HR CAMMY Rx#: [id number] Output: Urine 2100 Indwelling Catheter 2100 Other: Total, Output Amount 900 - Exam Breasts: Present: normal Cardiovascular: Present: Regular rate, Normal S1 Lungs: Present: Clear to auscultation, Normal air movement Abdomen: Present: normal appearance, soft, normal bowel sounds. Absent: distention, tenderness, guarding Vulva: both: normal Uterus: Present: normal, firm Extremities: Present: normal Deep Tendon Reflex Grade: Normal +2 Incision: Present: normal, dry, intact - Labs Labs: Abnormal lab results 07/15/19 07/15/19 07/15/19 Range/Units 06:27 11:37 11:37 WBC 33.9 H (4.5-11.0) K/mm3 RBC 2.87 L (3.65-5.03) M/mm3 Hgb 8.2 L (10.1-14.3) gm/dl Hct 27.4 L D (30.3-42.9) % Plt Count 70 L (140-440) K/mm3 Lymph % (Auto) (13.4-35.0) % Orange % (Auto) (0.0-7.3) % Orange # (0.0-0.8) K/mm3 Seg Neutrophils % (40.0-70.0) % Seg Neuts % (Manual) 95.0 H (40.0-70.0) % Lymphocytes % (Manual) 4.0 L (13.4-35.0) % Seg Neutrophils # (1.8-7.7) K/mm3 Seg Neutrophils # Man 32.2 H (1.8-7.7) K/mm3 Sodium 126 L (137-145) mmol/L Chloride 97.9 L (98-107) mmol/L Carbon Dioxide 11 L (22-30) mmol/L BUN 25 H (7-17) mg/dL Creatinine 2.2 H (0.7-1.2) mg/dL Glucose 159 H (65-100) mg/dL Calcium 6.8 L (8.4-10.2) mg/dL Magnesium 11.40 H (1.7-2.3) mg/dL 07/15/19 07/16/19 07/16/19 Range/Units 21:04 06:46 07:49 WBC 16.9 H 17.2 H (4.5-11.0) K/mm3 RBC 2.10 L 2.09 L (3.65-5.03) M/mm3 Hgb 8.1 L 6.2 L 6.1 L (10.1-14.3) gm/dl Hct 25.0 L 18.6 L* D 18.6 L* (30.3-42.9) % Plt Count 94 L 99 L (140-440) K/mm3 Lymph % (Auto) 8.4 L (13.4-35.0) % Orange % (Auto) 9.6 H (0.0-7.3) % Orange # 1.6 H (0.0-0.8) K/mm3 Seg Neutrophils % 81.9 H (40.0-70.0) % Seg Neuts % (Manual) (40.0-70.0) % Lymphocytes % (Manual) (13.4-35.0) % Seg Neutrophils # 13.8 H (1.8-7.7) K/mm3 Seg Neutrophils # Man (1.8-7.7) K/mm3 Sodium (137-145) mmol/L Chloride (98-107) mmol/L Carbon Dioxide (22-30) mmol/L BUN (7-17) mg/dL Creatinine (0.7-1.2) mg/dL Glucose (65-100) mg/dL Calcium (8.4-10.2) mg/dL Magnesium (1.7-2.3) mg/dL
[2019-07-16] MEDS ORDERED: SODIUM CHLORIDE 0.9% 500 ML 500 ML IV NR (09:00)
[2019-07-16 10:25] LABS: Basophils % (Auto) 0.1 % (0.0-1.8); Hemoglobin 6.4 gm/dl (10.1-14.3); Lymphocytes # (Auto) 1.3 K/mm3 (1.2-5.4); Lymphocytes % (Auto) 6.9 % (13.4-35.0); Mean Corpuscular HGB Conc 33 % (30-34); Mean Corpuscular Volume 89 fl (79-97); Monocytes # (Auto) 1.8 K/mm3 (0.0-0.8); Monocytes % (Auto) 9.7 % (0.0-7.3); Platelet Count 111 K/mm3 (140-440); Red Blood Count 2.18 M/mm3 (3.65-5.03); Red Cell Distribution Width 14.9 % (13.2-15.2)
[2019-07-16 10:33] LABS: Hematocrit 19.4 % (30.3-42.9)
[2019-07-16 10:46] LABS: Alanine Aminotransferase 15 units/L (7-56); Albumin 2.2 g/dL (3.9-5); BUN/Creatinine Ratio 15; Blood Urea Nitrogen 21 mg/dL (7-17); Hemolysis Index 2
[2019-07-16] MEDS: IBUPROFEN 600 MG TAB PO SCH ×3 (11:23→22:00)
--- NOTE | 2019-07-16 12:25 | XRay Report ---
CHEST 2 VIEWS INDICATION / CLINICAL INFORMATION: tachy. COMPARISON: None available. FINDINGS: SUPPORT DEVICES: None. HEART / MEDIASTINUM: No significant abnormality. LUNGS / PLEURA: Minimal parenchymal density in both lower lobes representing either early pneumonia o r subsegmental atelectasis No pneumothorax. ADDITIONAL FINDINGS: No significant additional findings. IMPRESSION: Minimal parenchymal density is seen in both lower lobes. Signer Name: Dm Rico MD FACR Signed: 07/16/2019 12:21 PM Workstation Name: [id number]
--- NOTE | 2019-07-16 14:13 | Consultation ---
History of Present Illness - Reason for Consult Consult date: 07/16/19 - History of Present Illness 34 yo F no PMHx but 31 weeks who presented with complaints of severe abdominal pain. Her had been uncomplicated until her presentation aside from recently diagnosed gestational diabetes. She denied any vaginal bleeding or other symptoms prior to admission. On evaluation by SENIOR FINANCIAL ANALYST she was found to have an intrauterine demise with placental abruption and pre-eclampsia. She underwent a for evacuation of the fetus on 07/14. She was being monitored for blood loss and was found to have an elevated white count which continued to rise post-procedurally. She denies any fevers, sweats, chills. Denies any issues with the surgical site. Also complains of a mild cough and sputum production. Afebrile since admission with a white count of 19 which peaked at 31. Currently receiving Unasyn. Blood cultures NGTD. Imaging personally reviewed: CXR: Review of systems: Bold if positive; otherwise negative GENERAL: fever, chills, weight loss, fatigue, night sweats EYES: blurry vision, eye pain HENT: headache, hearing loss, sore throat, dysphagia, sinus pain CARDIO: chest pain, palpitations, orthopnea PULM: shortness of breath, wheezing, cough, sputum, hemoptysis GI: nausea, vomiting, diarrhea, abdominal pain, blood in stool : urinary frequency, urgency, dysuria, urethral discharge MSK: joint pain, back pain, swelling SKIN: rash, redness HEME: easy bruising, bleeding Past History Past Medical History: No medical history Past Surgical History: Social history: no significant social history Family history: no significant family history Medications and Allergies Allergies Allergy/AdvReac Type Severity Reaction Status Date / Time No Known Allergies Allergy Verified 06/20/17 11:15 Home Medications Medication Instructions Recorded Confirmed Last Taken Type Dextromethorphn/Acetaminoph/Cp 20 ml PO PRN PRN 06/20/17 06/22/17 06/20/17 Histo ry [Vicks Nyquil Cold & Flu Liquid] Ibuprofen/Pseudoephedrine HCl 1 each PO Q6H PRN 06/20/17 06/22/17 06/20/17 History [Advil Cold & Sinus Caplet] Loratadine/Pseudoephedrine 1 tab PO DAILY 10/06/22/17 06/20/17 History [Claritin-D 24Hr] Aspirin [Aspirin TAB] 650 mg PO QDAY 06/22/17 06/22/17 06/21/17 History HYDROcodone/APAP 5-325 [Babcock 1 each PO Q6HR PRN #20 tablet 06/22/17 Unknown Rx 5/325] Ibuprofen [Motrin] 800 mg PO Q8HR PRN #30 tablet 06/22/17 Unknown Rx Naproxen [Naprosyn] 500 mg PO BID 06/22/17 06/22/17 1 Week Ago History ~06/15/17 Amoxicillin/Potassium Clav 1 each PO BID 7 Days #14 tablet 09/01/17 Unknown Rx [Augmentin 875-125 Tablet] Benzonatate 200 mg PO TID PRN #30 capsule 09/01/17 Unknown Rx Fluticasone [Flonase] 1 spray NS QDAY #1 bottle 09/01/17 Unknown Rx Active Meds: Active Medications Acetaminophen (Tylenol) 650 mg PO Q4H PRN PRN Reason: Pain MILD(1-3)/Fever >100.5/GUSTAFSON Acetaminophen/Hydrocodone Bitart (Babcock 5/325) 2 each PO Q6H PRN PRN Reason: Pain, Moderate (4-6) Last Admin: 07/15/19 22:15 Dose: 2 each Documented by: Bisacodyl (Dulcolax) [address] BID PRN PRN Reason: Constipation Diphenhydramine HCl (Benadryl) 25 mg PO Q6H PRN PRN Reason: Itching Docusate Sodium (Colace) 100 mg PO BID [facility] Last Admin: 07/15/19 22:00 Dose: 100 mg Documented by: Famotidine (Pepcid) 20 mg IV QDAY [facility] Ferrous Sulfate (Feosol) 325 mg PO QDAY [facility] Hydralazine HCl (Apresoline) 5 mg IV Q30MIN PRN PRN Reason: Hypertension Last Admin: 07/15/19 13:03 Dose: 5 mg Documented by: Lactated Ringer's (Lactated Ringers) 1,000 mls @ 125 mls/hr IV DIRECT CAMMY Magnesium Sulfate (Magnesium Sulfate 40gm/1000ml) 40 gm in 1,000 mls @ 50 mls/hr IV DIRECT CAMMY Last Admin: 07/14/19 14:25 Dose: 2 gm/hr, 50 mls/hr Documented by: Oxytocin/Sodium Chloride (Pitocin/Ns 20 Unit/1000ml Drip) 20 units in 1,000 mls @ 250 mls/hr IV DIRECT CAMMY Dextrose/Lactated Ringer's (D5lr) 1,000 mls @ 125 mls/hr IV DIRECT CAMMY Last Admin: 07/16/19 07:08 Dose: 125 mls/hr Documented by: Ampicillin Sodium/Sulbactam Sodium (Unasyn/Ns 3 Gm/100 Ml) 3 gm in 100 mls @ 200 mls/hr IV Q6HR [facility]; Protocol Last Admin: 07/16/19 07:06 Dose: 200 mls/hr Documented by: Sodium Chloride (Nacl 0.9% 500 Ml) 500 mls @ 0 mls/hr IV ONCE NR Stop: 07/16/19 17:00 Ibuprofen (Ibuprofen) 600 mg PO Q6H [facility] Last Admin: 07/16/19 11:23 Dose: 600 mg Documented by: Labetalol HCl (Labetalol) 400 mg PO BID [facility] Magnesium Hydroxide (Milk Of Magnesia) 30 ml PO HS PRN PRN Reason: Constipation Morphine Sulfate (Morphine) 2 mg IV Q3H PRN PRN Reason: Pain, Moderate (4-6) Last Admin: 07/15/19 10:23 Dose: 2 mg Documented by: Multi-Ingredient Ointment (Lansinoh) 1 applic TP PRN PRN PRN Reason: Sore Nipples Multivitamins/Iron/Calcium ( Vitamin) 1 each PO QDAY [facility] Naloxone HCl (Naloxone) 0.1 mg IV Q2MIN PRN PRN Reason: Res Rate </= 8 or 02 SAT < 92% Ondansetron HCl (Zofran) 4 mg IV Q8H PRN PRN Reason: Nausea And Vomiting Last Admin: 07/15/19 16:18 Dose: 4 mg Documented by: Oxycodone/Acetaminophen (Percocet 5/325) 1 tab PO Q6H PRN PRN Reason: Pain, Moderate (4-6) Pregabalin (Pregabalin) 75 mg PO QHS [facility] Last Admin: 07/15/19 22:00 Dose: 75 mg Documented by: Promethazine HCl (Phenergan) [address] Q6H PRN PRN Reason: Nausea And Vomiting Promethazine HCl (Phenergan) 25 mg PO Q6H PRN PRN Reason: Nausea And Vomiting Senna/Docusate Sodium (Senokot S) 2 tab PO Q12H [facility] Last Admin: 07/15/19 12:47 Dose: 2 tab Documented by: Simethicone (Mylicon) 80 mg PO Q6H PRN PRN Reason: Gas pain Last Admin: 07/15/19 10:35 Dose: 80 mg Documented by: Lalo Lazaro/Glycerin (Tucks Pad) 1 each TP PRN PRN PRN Reason: Hemorrhoid/cleansing/soothing Zolpidem Tartrate (Ambien) 5 mg PO QHS PRN PRN Reason: Sleep Last Admin: 07/16/19 01:38 Dose: 5 mg Documented by: Physical Examination - Physical Exam Narrative exam: General Normal appearance, well developed, no acute distress Eyes - PERRLA, EOM intact ENT - Moist mucous membranes, no lymphadenopathy Neck - No noticeable or palpable swelling, redness or rash around throat or on face Lymph Nodes - No lymphadenopathy Cardiovascular - RRR no m/r/g, no JVD, no carotid bruits Lungs - Clear to auscultation, no use of accessory muscles, no crackles or wheezes. Skin - No rashes, skin warm and dry, no erythematous areas Abdomen - Normal bowel sounds, abdomen soft and nontender. Surgical site c/d/i Extremities - No edema, cyanosis or clubbing Musculoskeletal - 5/5 strength, normal range of motion, no swollen or erythematous joints. Neurological Alert and oriented x 3, CN 2-12 grossly intact. - Constitutional Vitals: Vital Signs Temp Pulse Resp BP Pulse Ox 98.6 F 112 H 22 130/80 97 07/16/19 07:19 07/16/19 14:05 07/16/19 11:23 07/16/19 13:46 07/16/19 14:05 Temperature -Last 24 Hours Temperature 98.6 F Temperature 97.8 F Results - Labs CBC & Chem 7: 07/16/19 09:38 07/16/19 09:38 Labs: Abnormal lab results 07/14/19 07/15/19 07/16/19 Range/Units 10:15 21:04 06:46 WBC 16.9 H (4.5-11.0) K/mm3 RBC 2.10 L (3.65-5.03) M/mm3 Hgb 8.1 L 6.2 L (10.1-14.3) gm/dl Hct 25.0 L 18.6 L* D (30.3-42.9) % Plt Count 94 L (140-440) K/mm3 Lymph % (Auto) 8.4 L (13.4-35.0) % Parke % (Auto) 9.6 H (0.0-7.3) % Parke # 1.6 H (0.0-0.8) K/mm3 Seg Neutrophils % 81.9 H (40.0-70.0) % Seg Neutrophils # 13.8 H (1.8-7.7) K/mm3 Sodium (137-145) mmol/L Carbon Dioxide (22-30) mmol/L BUN (7-17) mg/dL Creatinine (0.7-1.2) mg/dL Glucose (65-100) mg/dL Calcium (8.4-10.2) mg/dL Total Protein (6.3-8.2) g/dL Albumin (3.9-5) g/dL Crossmatch See Detail 07/16/19 07/16/19 07/16/19 Range/Units 07:49 09:38 09:38 WBC 17.2 H 18.4 H (4.5-11.0) K/mm3 RBC 2.09 L 2.18 L (3.65-5.03) M/mm3 Hgb 6.1 L 6.4 L (10.1-14.3) gm/dl Hct 18.6 L* 19.4 L* (30.3-42.9) % Plt Count 99 L 111 L (140-440) K/mm3 Lymph % (Auto) 6.9 L (13.4-35.0) % Parke % (Auto) 9.7 H (0.0-7.3) % [place]ke # 1.8 H (0.0-0.8) K/mm3 Seg Neutrophils % 83.3 H (40.0-70.0) % Seg Neutrophils # 15.3 H (1.8-7.7) K/mm3 Sodium 136 L D (137-145) mmol/L Carbon Dioxide 14 L (22-30) mmol/L BUN 21 H (7-17) mg/dL Creatinine 1.4 H (0.7-1.2) mg/dL Glucose 189 H (65-100) mg/dL Calcium 7.0 L (8.4-10.2) mg/dL Total Protein 4.6 L (6.3-8.2) g/dL Albumin 2.2 L (3.9-5) g/dL Crossmatch Assessment and Plan Blood culture 07/15/2019 no growth to date Urine culture 07/14/2019 no growth to date Assessment: 34 yo F PMHx from previous admitted after intra- uterine failure now with leukocytosis 1. Leukocytosis - I believe this is mostly reactive to the placental/abruption and , as well as the blood transfusions. Certainly the jump from the teens to the 30s is secondary to the operation. Can continue Unasyn while monitoring the patient inpatient, but would expect to discharge without antibiotics. Recs: - continue UNasyn while inpatient - Monitor WBC daily - follow up cultures. [facility] ([facility] M: [phone] O: [phone] F: [phone]
[2019-07-16] MEDS: HYDROcodone/ACETAMINOPHEN 5-325 MG TAB PO PRN (20:40)
--- NOTE | 2019-07-16 21:02 | Cat Scan Report ---
CT abdomen pelvis w con INDICATION: anemia, s/p surgery. TECHNIQUE: All CT scans at this location are performed using the following dose modulation technique: Automated exposure control. CONTRAST: Omnipaque 300, 60 cc IV injection. COMPARISON: Limited OB ultrasound. 07/14/2019. CT abdomen: Small basilar effusions with associated atelectasis. Patchy infiltrate at the right base typical of aspiration. Evaluation of the parenchymal organs demonstrates no suspicious parenchymal lesion. The right kidney contains a 1 cm cyst. The bowel is mildly dilated anteriorly, but not thickened. A small amount of po stoperative free air is present. Postsurgical change is present at the anterior abdominal wall. CT PELVIS: Large uterus. There is a small amount of blood adjacent to the uterus and a sma ll amount of blood, fluid and air at the cul-de-sac. No large hematoma is present. Postsurgical change abdominal wall. IMPRESSION: 1. Small basilar effusions with associated atelectasis. Right basilar pneumonia. 2. uterus with a small amount of adjacent blood. There is also blood, air and fluid at the cul-de-sac. No large hematoma. Signer Name: Tamir Munoz MD Signed: 07/16/2019 8:58 PM Workstation Name: [id number]
[2019-07-16] MEDS: DOCUSATE SODIUM 100 MG CAP PO SCH (21:43)
[2019-07-16] MEDS: PREGABALIN 75 MG CAP PO SCH (21:44)
[2019-07-16] MEDS: SENNOSIDES/DOCUSATE SODIUM 8.6/50 MG TAB PO SCH (22:00)
[2019-07-17] MEDS: ZOLPIDEM 5 MG TAB PO PRN (00:20)
[2019-07-17 01:04] LABS: Basophils % (Auto) 0.1 % (0.0-1.8); Eosinophils # (Auto) 0.1 K/mm3 (0.0-0.4); Eosinophils % (Auto) 0.3 % (0.0-4.3); Hematocrit 23.7 % (30.3-42.9); Lymphocytes # (Auto) 1.8 K/mm3 (1.2-5.4); Lymphocytes % (Auto) 10.9 % (13.4-35.0); Mean Corpuscular HGB Conc 34 % (30-34); Mean Corpuscular Volume 87 fl (79-97); Monocytes # (Auto) 1.8 K/mm3 (0.0-0.8); Monocytes % (Auto) 11.1 % (0.0-7.3); Platelet Count 108 K/mm3 (140-440); Red Blood Count 2.71 M/mm3 (3.65-5.03)
[2019-07-17] MEDS: AMPICILLIN/SULBACTA 3GM/100ML 3 GM/100 ML BAG IV SCH (03:42)
[2019-07-17] MEDS: IBUPROFEN 600 MG TAB PO SCH ×2 (04:00→10:42)
[2019-07-17] MEDS: PRENATAL VIT27-FE FUMARATE-FOLIC ACID VIT TAB PO SCH (10:37)
[2019-07-17] MEDS: SENNOSIDES/DOCUSATE SODIUM 8.6/50 MG TAB PO SCH ×3 (10:38→22:09)
[2019-07-17] MEDS: FERROUS SULFATE 325 MG TAB PO SCH (10:38)
[2019-07-17] MEDS: DOCUSATE SODIUM 100 MG CAP PO SCH ×2 (10:39→22:15)
--- NOTE | 2019-07-17 10:48 | Progress Note ---
Assessment and Plan - Patient Problems (1) Severe preeclampsia Current Visit: Yes Status: Acute Plan to address problem: demonstrating clinical improvement consider discharge tomorrow (2) Leukocytosis Current Visit: Yes Status: Acute Subjective - Subjective Date of service: 07/17/19 Principal diagnosis: s/p iufd, repeat cesec Interval history: Patient reports feeling better. Blood pressures improved. Patient has completed magnesium therapy. She has not had any seizure activity. Patient reports: appetite normal, voiding normally, pain well controlled [place]: Objective - Vital Signs Latest vital signs: Vital Signs Temp Pulse Resp BP BP Pulse Ox 07/17/19 10:37 82 140/84 07/17/19 08:27 98.1 F 82 16 140/84 140/84 99 07/17/19 04:50 18 07/17/19 04:00 18 07/17/19 03:50 18 07/17/19 03:47 98 F 86 20 143/74 07/17/19 03:46 86 143/74 07/16/19 22:00 18 07/16/19 21:45 98.8 F 85 18 134/78 07/16/19 21:40 18 07/16/19 20:40 18 07/16/19 19:47 18 07/16/19 19:44 94 H 100 07/16/19 19:43 88 141/83 07/16/19 18:58 106 H 137/75 99 07/16/19 18:53 99 H 99 07/16/19 18:48 90 99 07/16/19 18:47 22 07/16/19 18:43 94 H 158/101 99 07/16/19 18:38 104 H 99 07/16/19 18:33 93 H 99 07/16/19 18:31 86 147/90 07/16/19 18:28 90 149/91 96 07/16/19 18:23 105 H 98 07/16/19 18:18 88 100 07/16/19 18:13 101 H 98 07/16/19 18:08 102 H 100 07/16/19 18:05 93 H 141/84 07/16/19 18:04 99 H 141/84 07/16/19 18:03 100 H 99 07/16/19 17:58 107 H 157/97 99 07/16/19 17:53 107 H 99 07/16/19 17:48 97 H 98 07/16/19 17:43 97 H 167/95 99 07/16/19 17:38 91 H 99 07/16/19 17:33 95 H 99 07/16/19 17:29 98 H 92 07/16/19 17:28 96 H 143/84 100 07/16/19 17:23 93 H 97 07/16/19 17:20 104 H 94 07/16/19 17:18 107 H 98 07/16/19 17:13 100 H 141/85 99 07/16/19 17:08 103 H 100 07/16/19 17:03 95 H 99 07/16/19 16:58 90 146/88 100 07/16/19 16:53 96 H 100 07/16/19 16:48 96 H 142/85 97 07/16/19 15:45 104 H 98 07/16/19 15:43 104 H 150/81 07/16/19 15:40 94 H 98 07/16/19 15:35 110 H 97 07/16/19 15:28 106 H 140/76 07/16/19 15:25 110 H 98 07/16/19 15:20 97 H 97 07/16/19 15:15 108 H 98 07/16/19 15:13 93 H 131/74 07/16/19 15:10 96 H 97 07/16/19 15:05 108 H 97 07/16/19 15:00 101 H 96 07/16/19 14:58 98 H 122/66 07/16/19 14:55 97 H 96 07/16/19 14:50 99 H 96 07/16/19 14:45 99 H 96 07/16/19 14:43 101 H 140/73 07/16/19 14:40 103 H 97 07/16/19 14:35 100 H 97 07/16/19 14:30 94 H 97 07/16/19 14:28 100 H 138/73 07/16/19 14:25 99 H 99 07/16/19 14:20 98 H 98 07/16/19 14:15 103 H 98 07/16/19 14:14 108 H 120/84 07/16/19 14:10 111 H 97 07/16/19 14:05 112 H 97 07/16/19 14:00 111 H 98 07/16/19 13:55 104 H 98 07/16/19 13:50 113 H 97 07/16/19 13:46 111 H 130/80 07/16/19 12:31 102 H 99 07/16/19 12:28 107 H 141/86 07/16/19 11:23 22 07/16/19 11:16 98 H 146/81 Intake and Output 07/16/19 07/17/19 07/17/19 22:59 06:59 14:59 Intake Total 1215 600 Output Total 150 Balance 1065 600 Intake: IV 100 UNASYN/NS 3 GM/100 ML 3 100 gm In 100 ml @ 200 mls/hr IV Q6HR [facility] Rx#: [id number] Intake, Free Water 240 600 Blood Product 750 Leukoreduced Red Blood 250 Cells Unit [id number] Leukoreduced Red Blood 250 Cells Unit [id number] Leukoreduced Red Blood 250 Cells Unit [id number] Other 125 Leukoreduced Red Blood 25 Cells Unit [id number] Leukoreduced Red Blood 100 Cells Unit [id number] Leukoreduced Red Blood 0 Cells Unit [id number] Output: Urine 150 Uretheral ([place]) 150 Other: Intake, Other Source Leukoreduced Red Blood Saline Solution Cells Unit [id number] Leukoreduced Red Blood Saline Solution Cells Unit [id number] Leukoreduced Red Blood Saline Solution Cells Unit [id number] # Voids Void 1 1 # Bowel Movements 1 - Labs Labs: Abnormal lab results 07/14/19 07/16/19 07/17/19 Range/Units 10:15 09:38 00:25 WBC 16.1 H (4.5-11.0) K/mm3 RBC 2.71 L (3.65-5.03) M/mm3 Hgb 8.0 L (10.1-14.3) gm/dl Hct 23.7 L (30.3-42.9) % Plt Count 108 L (140-440) K/mm3 Lymph % (Auto) 10.9 L (13.4-35.0) % [place] % (Auto) 11.1 H (0.0-7.3) % [place] # 1.8 H (0.0-0.8) K/mm3 Seg Neutrophils % 77.6 H (40.0-70.0) % Seg Neutrophils # 12.5 H (1.8-7.7) K/mm3 Sodium 136 L D (137-145) mmol/L Carbon Dioxide 14 L (22-30) mmol/L BUN 21 H (7-17) mg/dL Creatinine 1.4 H (0.7-1.2) mg/dL Glucose 189 H (65-100) mg/dL Calcium 7.0 L (8.4-10.2) mg/dL Total Protein 4.6 L (6.3-8.2) g/dL Albumin 2.2 L (3.9-5) g/dL Crossmatch See Detail
[2019-07-17] MEDS ORDERED: ALBUTEROL 2.5 MG/3 ML NEBU IH PRN (11:27)
[2019-07-17] MEDS: cephALEXin 500 MG CAP PO SCH ×2 (12:50→18:35)
--- NOTE | 2019-07-17 13:15 | Progress Note ---
Assessment and Plan Blood culture 07/15/2019 no growth to date Urine culture 07/14/2019 no growth to date Assessment: 34 yo F PMHx from previous admitted after intra- uterine failure now with leukocytosis 1. Leukocytosis - I believe this is mostly reactive to the placental/abruption and , as well as the blood transfusions. Certainly the jump from the teens to the 30s is secondary to the operation. Can continue Unasyn while monitoring the patient inpatient, but would expect to discharge without antibiotics. Recs: - continue UNasyn while inpatient. Likely discharge without antibiotics. - Monitor WBC daily - follow up cultures. [facility] M: [phone] O: [phone] F: [phone] Subjective Date of service: 07/17/19 Principal diagnosis: s/p iufd, repeat cesec Interval history: Afebrile, slightly improved white count. Objective - Exam Narrative Exam: General Normal appearance, well developed, no acute distress Eyes - PERRLA, EOM intact ENT - Moist mucous membranes, no lymphadenopathy Neck - No noticeable or palpable swelling, redness or rash around throat or on face Lymph Nodes - No lymphadenopathy Cardiovascular - RRR no m/r/g, no JVD, no carotid bruits Lungs - Clear to auscultation, no use of accessory muscles, no crackles or wheezes. Skin - No rashes, skin warm and dry, no erythematous areas Abdomen - Normal bowel sounds, abdomen soft and nontender. Surgical site c/d/i Extremities - No edema, cyanosis or clubbing Musculoskeletal - 5/5 strength, normal range of motion, no swollen or erythematous joints. Neurological Alert and oriented x 3, CN 2-12 grossly intact. - Constitutional Vitals: Vital Signs Temp Pulse Resp BP Pulse Ox 98.1 F 84 12 140/84 98 07/17/19 08:27 07/17/19 12:44 07/17/19 12:44 07/17/19 10:37 07/17/19 12:34 Temperature -Last 24 Hours Temperature 98.1 F Temperature 98 F Temperature 98.8 F - Labs CBC & Chem 7: 07/17/19 00:25 07/16/19 09:38 Labs: Abnormal lab results 11/07/17/19 07/17/19 Range/Units 10:15 00:25 09:52 WBC 16.1 H (4.5-11.0) K/mm3 RBC 2.71 L (3.65-5.03) M/mm3 Hgb 8.0 L (10.1-14.3) gm/dl Hct 23.7 L (30.3-42.9) % Plt Count 108 L (140-440) K/mm3 Lymph % (Auto) 10.9 L (13.4-35.0) % [place] % (Auto) 11.1 H (0.0-7.3) % [place] # 1.8 H (0.0-0.8) K/mm3 Seg Neutrophils % 77.6 H (40.0-70.0) % Seg Neutrophils # 12.5 H (1.8-7.7) K/mm3 Magnesium 2.40 H (1.7-2.3) mg/dL Crossmatch See Detail
[2019-07-17] MEDS: HYDROcodone/ACETAMINOPHEN 5-325 MG TAB PO PRN (18:39)
[2019-07-17] MEDS: PREGABALIN 75 MG CAP PO SCH (22:09)
[2019-07-18] MEDS: cephALEXin 500 MG CAP PO SCH ×5 (00:37→23:39)
[2019-07-18] MEDS: HYDROcodone/ACETAMINOPHEN 5-325 MG TAB PO PRN ×4 (00:37→18:23)
[2019-07-18] MEDS: IBUPROFEN 600 MG TAB PO SCH ×3 (04:15→21:40)
[2019-07-18 06:30] LABS: Hematocrit 24.1 % (30.3-42.9); Hemoglobin 7.9 gm/dl (10.1-14.3); Mean Corpuscular HGB Conc 33 % (30-34); Mean Corpuscular Volume 89 fl (79-97); Platelet Count 133 K/mm3 (140-440); Red Cell Distribution Width 15.5 % (13.2-15.2)
[2019-07-18] MEDS: PRENATAL VIT27-FE FUMARATE-FOLIC ACID VIT TAB PO SCH (12:00)
[2019-07-18] MEDS: DOCUSATE SODIUM 100 MG CAP PO SCH ×2 (12:00→21:36)
[2019-07-18] MEDS: FERROUS SULFATE 325 MG TAB PO SCH (12:00)
[2019-07-18] MEDS: FAMOTIDINE 20 MG TAB PO SCH (12:01)
[2019-07-18] MEDS: SENNOSIDES/DOCUSATE SODIUM 8.6/50 MG TAB PO SCH ×3 (12:02→23:36)
[2019-07-18 16:44] LABS: Alanine Aminotransferase 74 units/L (7-56); Albumin 2.5 g/dL (3.9-5); BUN/Creatinine Ratio 14; Blood Urea Nitrogen 13 mg/dL (7-17); Calcium 8.1 mg/dL (8.4-10.2); Hemolysis Index 3
[2019-07-18] MEDS: PREGABALIN 75 MG CAP PO SCH (21:35)
[2019-07-19] MEDS: cephALEXin 500 MG CAP PO SCH ×2 (05:21→13:12)
[2019-07-19] MEDS: IBUPROFEN 600 MG TAB PO SCH (05:22)
--- NOTE | 2019-07-19 08:54 | Progress Note ---
Assessment and Plan POD 5 s/p ltcs for abruption and HELLP with subsequent transfusions and infection. Pt's white count is trending downward, however, she had a recent and significant spike in LFTs. She remains afebrile. Pt to continue antihypertensives. If bloodwork is stable today, will be ok for discharge. Subjective - Subjective Date of service: 07/19/19 Principal diagnosis: s/p iufd, repeat cesec Patient reports: appetite normal, voiding normally, pain well controlled, ambulating normally [place]: Objective - Vital Signs Latest vital signs: Vital Signs Temp Pulse Resp BP Pulse Ox 07/19/19 05:22 18 07/19/19 00:18 98.2 F 69 20 135/76 97 07/18/19 21:40 18 07/18/19 21:37 74 141/71 07/18/19 15:37 98.3 F 69 20 151/86 98 Intake and Output 07/18/19 07/19/19 07/19/19 22:59 06:59 14:59 Intake Total 240 Balance 240 Intake: Oral 240 Other: Total, Intake Amount 240 # Voids Void 1 - Exam Breasts: Present: deferred Cardiovascular: Present: Regular rate, Normal S1, Normal S2 Lungs: Present: Clear to auscultation, Normal air movement Abdomen: Present: normal appearance, soft Uterus: Present: normal, firm Extremities: Present: normal Incision: Present: normal, dry, intact - Labs Labs: Abnormal lab results 07/18/19 Range/Units 15:09 Sodium 134 L (137-145) mmol/L Potassium 5.1 H (3.6-5.0) mmol/L Carbon Dioxide 20 L (22-30) mmol/L Glucose 125 H (65-100) mg/dL Calcium 8.1 L D (8.4-10.2) mg/dL AST 111 H (5-40) units/L ALT 74 H (7-56) units/L Total Protein 4.8 L (6.3-8.2) g/dL Albumin 2.5 L (3.9-5) g/dL
[2019-07-19 09:02] LABS: Basophils # (Auto) 0.1 K/mm3 (0.0-0.1); Basophils % (Auto) 0.5 % (0.0-1.8); Eosinophils # (Auto) 0.3 K/mm3 (0.0-0.4); Eosinophils % (Auto) 1.9 % (0.0-4.3); Hematocrit 26.4 % (30.3-42.9); Hemoglobin 8.7 gm/dl (10.1-14.3); Lymphocytes # (Auto) 1.5 K/mm3 (1.2-5.4); Lymphocytes % (Auto) 11.2 % (13.4-35.0); Mean Corpuscular HGB Conc 33 % (30-34); Mean Corpuscular Volume 90 fl (79-97); Monocytes # (Auto) 1.1 K/mm3 (0.0-0.8); Monocytes % (Auto) 8.4 % (0.0-7.3); Platelet Count 170 K/mm3 (140-440); Red Blood Count 2.94 M/mm3 (3.65-5.03); Red Cell Distribution Width 15.6 % (13.2-15.2)
[2019-07-19 09:27] LABS: Alanine Aminotransferase 86 units/L (7-56); Albumin 2.6 g/dL (3.9-5); BUN/Creatinine Ratio 16; Blood Urea Nitrogen 14 mg/dL (7-17); Calcium 8.5 mg/dL (8.4-10.2); Hemolysis Index 5
[2019-07-19] MEDS: PRENATAL VIT27-FE FUMARATE-FOLIC ACID VIT TAB PO SCH (09:37)
[2019-07-19] MEDS: FERROUS SULFATE 325 MG TAB PO SCH (09:37)
[2019-07-19 09:38] VITALS: BP 166/89
[2019-07-19] MEDS: DOCUSATE SODIUM 100 MG CAP PO SCH (09:38)
[2019-07-19] MEDS: FAMOTIDINE 20 MG TAB PO SCH (09:38)
[2019-07-19] MEDS: SENNOSIDES/DOCUSATE SODIUM 8.6/50 MG TAB PO SCH (09:46)
--- NOTE | 2019-07-19 13:54 | Progress Note ---
Assessment and Plan Blood culture 07/15/2019 no growth to date Urine culture 07/14/2019 no growth to date Assessment: 34 yo F PMHx from previous admitted after intra- uterine failure now with leukocytosis 1. Leukocytosis - I believe this is mostly reactive to the placental/abruption and , as well as the blood transfusions. Certainly the jump from the teens to the 30s is secondary to the operation. Can continue Unasyn while monitoring the patient inpatient, but would expect to discharge without antibiotics. Recs: - continue UNasyn while inpatient. Discharge without antibiotics - ok for discharge from ID perspective. - Monitor WBC daily - follow up cultures. [facility] M: [phone] O: [phone] F: [phone] Subjective Date of service: 07/19/19 Principal diagnosis: s/p iufd, repeat cesec Interval history: Afebrile, slightly improved white count. Objective - Exam Narrative Exam: General Normal appearance, well developed, no acute distress Eyes - PERRLA, EOM intact ENT - Moist mucous membranes, no lymphadenopathy Neck - No noticeable or palpable swelling, redness or rash around throat or on face Lymph Nodes - No lymphadenopathy Cardiovascular - RRR no m/r/g, no JVD, no carotid bruits Lungs - Clear to auscultation, no use of accessory muscles, no crackles or wheezes. Skin - No rashes, skin warm and dry, no erythematous areas Abdomen - Normal bowel sounds, abdomen soft and nontender. Surgical site c/d/i Extremities - No edema, cyanosis or clubbing Musculoskeletal - 5/5 strength, normal range of motion, no swollen or erythematous joints. Neurological Alert and oriented x 3, CN 2-12 grossly intact. - Constitutional Vitals: Vital Signs Temp Pulse Resp BP Pulse Ox 98.7 F 57 L 15 166/89 99 07/19/19 09:43 07/19/19 09:43 07/19/19 09:43 07/19/19 09:43 07/19/19 09:43 Temperature -Last 24 Hours Temperature 98.7 F Temperature 98.2 F Temperature 98.3 F - Labs CBC & Chem 7: 07/19/19 07:18 07/19/19 07:18 Labs: Abnormal lab results 07/18/19 07/19/19 07/19/19 Range/Units 15:09 07:18 07:18 WBC 13.6 H (4.5-11.0) K/mm3 RBC 2.94 L (3.65-5.03) M/mm3 Hgb 8.7 L (10.1-14.3) gm/dl Hct 26.4 L (30.3-42.9) % RDW 15.6 H (13.2-15.2) % Lymph % (Auto) 11.2 L (13.4-35.0) % [place] % (Auto) 8.4 H (0.0-7.3) % [place] # 1.1 H (0.0-0.8) K/mm3 Seg Neutrophils % 78.0 H (40.0-70.0) % Seg Neutrophils # 10.6 H (1.8-7.7) K/mm3 Sodium 134 L 136 L (137-145) mmol/L Potassium 5.1 H 5.2 H (3.6-5.0) mmol/L Carbon Dioxide 20 L 18 L (22-30) mmol/L Glucose 125 H 104 H (65-100) mg/dL Calcium 8.1 L D (8.4-10.2) mg/dL AST 111 H 95 H (5-40) units/L ALT 74 H 86 H (7-56) units/L Total Protein 4.8 L 5.0 L (6.3-8.2) g/dL Albumin 2.5 L 2.6 L (3.9-5) g/dL
[2019-07-19] MEDS: HYDROcodone/ACETAMINOPHEN 5-325 MG TAB PO PRN (15:32)
--- NOTE | 2019-07-19 16:13 | Discharge Summary ---
Providers - Providers Date of Admission: 07/14/19 12:58 Date of discharge: 07/19/19 Attending physician: GERMAN COSTELLO 07/14/19 22:46 Consult to Physician [CONS] Routine Comment: Consulting Provider: JAQUELINE BOUCHER Physician Instructions: Reason For Exam: s/p placental abruption with IUFD, Concern for DIC 07/16/19 11:50 Consult to Physician [CONS] Urgent Comment: Consulting Provider: GAURAV NOONAN Physician Instructions: Reason For Exam: elevated wbc 07/17/19 14:57 Consult to Case Management [CONS] Routine Services Needed at Discharge: Other Notified:: Mike WINTERS Primary care physician: ROCKET ENGINE TESTER Hospitalization Reason for admission: vaginal bleeding, other Delivery: Procedure: primary low transverse complications: other (hellp) Discharge diagnosis: other (hellp syndrome , placental abruption), intrapartum demise Hospital course: refer to primary ob Condition at discharge: Stable Disposition: DC-01 TO HOME OR SELFCARE Plan - Discharge Medications Prescriptions: labetaloL [Labetalol 200mg TAB] 400 mg PO BID #60 tablet Ibuprofen [Motrin] 800 mg PO Q8HR PRN #60 tablet PRN Reason: Pain, Mild (1-3) oxyCODONE /ACETAMINOPHEN [Percocet 5/325] 1 tab PO Q6HR PRN #30 tablet PRN Reason: Pain - Provider Discharge Summary Activity: routine, no sex for 6 weeks, no heavy lifting 4 weeks, no strenuous exercise Diet: routine Instructions: routine Additional instructions: [] Smoking cessation referral if applicable(refer to patient education folder for contact #) [] Refer to [employer] Booklet Call your doctor immediately for: * Fever > 100.5 * Heavy vaginal bleeding ( >1 pad per hour) * Severe persistent headache * Shortness of breath * Reddened, hot, painful area to leg or breast * Drainage or odor from incision. * Keep incision clean and dry at all times and follow doctor's instructions regarding bathing/showering - Follow up plan Follow up: LUISITO HARDWICK MD [Primary Care Provider] - 7 Days GERMAN COSTELLO MD [Staff Physician] - 7 Days Forms: [facility] Discharge Summary, Work/School Excuse Out Patient
[2019-07-27 11:13] LABS: HIV-1 Antibody Differentiation SEE SCANNED RESULT; HIV-2 Antibody Differentiation SEE SCANNED RESULT
== END 2019-07-19 18:20 | disposition home or self-care (01) | DRG 765 ==
LOC: TRG 10:07 → APU 12:58 → LD 07-15 07:33 → OB 07-17 11:36
PROVIDERS: ADMIT Obstetrics & Gynecology; ATTEND Obstetrics & Gynecology
PROC: 10D00Z1 Extraction of Products of Conception, Low, Open Approach (ICD-10-PCS; principal; 2019-07-14)
PROC: 30233N1 Transfusion of Nonautologous Red Blood Cells into Peripheral Vein, Percutaneous Approach (ICD-10-PCS; 2019-07-14)
DX: O14.24 HELLP syndrome, complicating childbirth (principal); O36.4XX0 Maternal care for intrauterine death, not applicable or unspecified; O99.12 Other diseases of the blood and blood-forming organs and certain disorders involving the immune mechanism complicating childbirth; O99.02 Anemia complicating childbirth; O34.211 Maternal care for low transverse scar from previous cesarean delivery; D64.9 Anemia, unspecified; D69.6 Thrombocytopenia, unspecified; Z3A.31 31 weeks gestation of pregnancy; Z37.1 Single stillbirth
CPT/HCPCS: 36415; 71046; 74177; 76815; 80048; 80053; 80307; 81001; 82565; 82962; 83036; 83615; 83735; 84450; 84460; 84550; 85007; 85014; 85018; 85025; 85027; 85384; 85610; 85730; 86689; 86706; 86762; 86803; 86850; 86900; 86901; 86920; 87040; 87086; 87806; 88307; 94640; G0378; J0295; J0360; J0690; J2270; J2405; J2590; J2765; J3475; J7040; J7120; J7121; P9016; Q9967

== ENCOUNTER 2019-07-30 22:10 | Emergency (ER) | payer MEDICAID ==
[2019-07-30 22:16] VITALS: BP 138/102
--- NOTE | 2019-07-30 22:27 | Event Note ---
ED Screening Note Date of service: 07/30/19 Time: 22:26 ED Screening Note: 34 y o s/p c/section 07/14/19 presents for abd pain This initial assessment/diagnostic orders/clinical plan/treatment(s) is/are subject to change based on patients health status, clinical progression and re- assessment by fellow clinical providers in the ED. Further treatment and workup at subsequent clinical providers discretion. Patient/guardian urged not to elope from the ED as their condition may be serious if not clinically assessed and managed. Initial orders include: ua, cbc,bmp
[2019-07-30 23:17] LABS: Basophils # (Auto) 0.1 K/mm3 (0.0-0.1); Basophils % (Auto) 0.9 % (0.0-1.8); Eosinophils # (Auto) 0.3 K/mm3 (0.0-0.4); Eosinophils % (Auto) 3.5 % (0.0-4.3); Hematocrit 37.3 % (30.3-42.9); Hemoglobin 12.3 gm/dl (10.1-14.3); Lymphocytes # (Auto) 1.9 K/mm3 (1.2-5.4); Mean Corpuscular HGB Conc 33 % (30-34); Mean Corpuscular Volume 89 fl (79-97); Monocytes # (Auto) 0.7 K/mm3 (0.0-0.8); Monocytes % (Auto) 8.8 % (0.0-7.3); Platelet Count 545 K/mm3 (140-440); Red Blood Count 4.17 M/mm3 (3.65-5.03)
[2019-07-30 23:28] LABS: Bacteria,Urine 1+ /HPF (Negative); Bilirubin,Urine NEG (Negative); Blood,Urine SM (Negative); Color,Urine Yellow (Yellow); Mucus,Urine FEW /HPF; Protein,Urine <15 mg/dL mg/dL (Negative); Urobilinogen,Urine < 2.0 mg/dL (<2.0)
[2019-07-30 23:47] LABS: BUN/Creatinine Ratio 17; Blood Urea Nitrogen 17 mg/dL (7-17); Calcium 9.9 mg/dL (8.4-10.2); Hemolysis Index 11
== END 2019-07-30 23:27 | disposition left against medical advice (07) ==
LOC: ED 22:10
DX: R10.9 Unspecified abdominal pain (principal); Z53.21 Procedure and treatment not carried out due to patient leaving prior to being seen by health care provider
CPT/HCPCS: 36415; 80048; 81001; 85025; 87086

== ENCOUNTER 2019-08-12 09:27 | Outpatient (CLI) | payer MEDICAID ==
[2019-08-12 10:19] LABS: Blood Urea Nitrogen 7 mg/dL (7-17)
--- NOTE | 2019-08-12 10:39 | Cat Scan Report ---
CT ABDOMEN AND PELVIS WITHOUT CONTRAST HISTORY: R10.9 ABDOMINAL PAIN COMPARISON: 07/16/2019 TECHNIQUE: Axial CT images were obtained through the abdomen and pelvis without IV contrast. Sagittal and coronal reformatted images. All CT scans at this location are performed using CT dose reduction for ALARA by means of automated exposure control. FINDINGS: CT ABDOMEN: Lung Bases: Clear. Liver: No significant abnormality. Biliary: Cholecystectomy. Spleen: No significant abnormality. Unenlarged. Pancreas: No significant abnormality. Adrenals: No significant abnormality. Kidneys: No significant abnormality. Lymphatics: No lymphadenopathy. Vasculature: No significant abnormality. Bowel/Peritoneum: No significant abnormality. No free air. No free fluid. Normal appendix. CT PELVIS: : The uterus and adnexa are within normal limits. Osseous Structures: Chronic pars defects at L5 with advanced disc space narrowing and grade 1 anterol isthesis is noted. Additional Findings: A small umbilical hernia containing fat measures 3.4 cm in diameter. IMPRESSION: No acute process is identified. Small umbilical hernia containing fat. Degenerative findings at L5-S1 as described. Signer Name: Benjamin Prasad Jr, MD Signed: 08/12/2019 10:35 AM Workstation Name: [id number]
== END 2019-08-12 09:28 | disposition home or self-care (01) ==
LOC: CT 09:27
PROVIDERS: ATTEND Obstetrics & Gynecology
DX: O36.4XX0 Maternal care for intrauterine death, not applicable or unspecified (principal); O14.90 Unspecified pre-eclampsia, unspecified trimester
CPT/HCPCS: 36415; 74177; 82565; 84520; Q9967

== ENCOUNTER 2020-06-23 17:46 | Emergency (ER) | payer MEDICAID ==
[2020-06-23 17:56] VITALS: BP 150/102
--- NOTE | 2020-06-23 18:15 | Event Note ---
ED Screening Note ED Screening Note: bit by dog to the right lower leg around 4PM unsure of dogs rabies status the dog pound came to the house unsure of last tetanus immunization PMHx none no allergies to meds LNMP: currently on cycle This initial assessment/diagnostic orders/clinical plan/treatment(s) is/are subject to change based on patients health status, clinical progression and re- assessment by fellow clinical providers in the ED. Further treatment and workup at subsequent clinical providers discretion. Patient/guardian urged not to elope from the ED as their condition may be serious if not clinically assessed and managed. Initial orders include: tdap wound care acc eval
[2020-06-23] MEDS ORDERED: AMOXICILLIN/K CLAV 875/125MG TAB PO ONE (19:00)
[2020-06-23] MEDS ORDERED: traMADol 50 MG TAB PO ONE (19:00)
--- NOTE | 2020-06-23 19:06 | Emergency Department Report ---
ED Animal Bite HPI - General Chief Complaint: Animal Bite Stated Complaint: ANIMAL BITE Time Seen by Provider: 06/23/20 18:13 Source: patient Mode of arrival: Ambulatory Limitations: No Limitations - History of Present Illness Initial Comments: Patient 35-year-old -[place] female who presents with dog bite to right posterior thigh. States small puncture wound x1. 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 Dog has had all rabies shots. Police and animal control called the scene. Animal control advises they will contact patient tomorrow reference rabies vaccination confirmation. There is no bleeding at this time there is no open wound. Patient is amatory with steady gait with no acute distress at this time. MD Complaint: animal bite - Related Data Home Medications Medication Instructions Recorded Confirmed Last Taken Dextromethorphn/Acetaminoph/Cp 20 ml PO PRN PRN 06/20/17 07/16/19 06/20/17 [Vicks Nyquil Cold & Flu Liquid] Ibuprofen/Pseudoephedrine HCl 1 each PO Q6H PRN 06/20/17 07/16/19 06/20/17 [Advil Cold & Sinus Caplet] Loratadine/Pseudoephedrine 1 tab PO DAILY 06/20/17 07/16/19 06/20/17 [Claritin-D 24Hr] Aspirin [Aspirin TAB] 650 mg PO QDAY 06/22/17 07/16/19 06/21/17 Naproxen [Naprosyn] 500 mg PO BID 06/22/17 07/16/19 1 Week Ago ~06/15/17 Previous Rx's Medication Instructions Recorded Last Taken Type HYDROcodone/APAP 5-325 [[place] 1 each PO Q6HR PRN #20 tablet 06/22/17 Unknown Rx 5/325] Ibuprofen [Motrin] 800 mg PO Q8HR PRN #30 tablet 06/22/17 Unknown Rx Amoxicillin/Potassium Clav 1 each PO BID 7 Days #14 tablet 09/01/17 Unknown Rx [Augmentin 875-125 Tablet] Benzonatate 200 mg PO TID PRN #30 capsule 09/01/17 Unknown Rx Fluticasone [Flonase] 1 spray NS QDAY #1 bottle 09/01/17 Unknown Rx Ibuprofen [Motrin] 800 mg PO Q8HR PRN #60 tablet 07/17/19 Unknown Rx labetaloL [Labetalol 200mg TAB] 400 mg PO BID #60 tablet 07/17/19 Unknown Rx oxyCODONE /ACETAMINOPHEN [Percocet 1 tab PO Q6HR PRN #30 tablet 07/17/19 Unknown Rx 5/325] Amoxicillin/Potassium Clav 1 each PO BID 10 Days #20 tablet 06/23/20 Unknown Rx [Augmentin 875-125 Tablet] traMADoL [Ultram] 50 mg PO Q6HR PRN #12 tablet 06/23/20 Unknown Rx Allergies Allergy/AdvReac Type Severity Reaction Status Date / Time No Known Allergies Allergy Verified 06/20/17 11:15 ED Review of Systems ROS: Stated complaint: ANIMAL BITE Other details as noted in HPI Constitutional: denies: chills, fever Eyes: denies: eye pain, eye discharge, vision change ENT: denies: ear pain, throat pain Respiratory: denies: cough, shortness of breath, wheezing Cardiovascular: denies: chest pain, palpitations Endocrine: no symptoms reported Gastrointestinal: denies: abdominal pain, nausea, diarrhea Genitourinary: denies: urgency, dysuria, discharge Musculoskeletal: denies: back pain, joint swelling, arthralgia Skin: other (dog bite posterior right thigh puncture wound x 1 ) Neurological: denies: headache, weakness, paresthesias Psychiatric: denies: anxiety, depression Hematological/Lymphatic: denies: easy bleeding, easy bruising ED Past Medical Hx - Past Medical History Hx Hypertension: Yes (PIH) Hx Diabetes: Yes (GDM) Hx Deep Vein Thrombosis: No Hx GERD: Yes Hx Renal Disease: No Hx Sickle Cell Disease: No Hx Headaches / Migraines: Yes Hx Seizures: No Hx Asthma: No Additional medical history: Childbirth, eye irritation, abd mass - Surgical History Additional Surgical History: - Social History Smoking Status: Never Smoker - Medications Home Medications: Home Medications Medication Instructions Recorded Confirmed Last Taken Type Dextromethorphn/Acetaminoph/Cp 20 ml PO PRN PRN 06/20/17 07/16/19 06/20/17 History [Vicks Nyquil Cold & Flu Liquid] Ibuprofen/Pseudoephedrine HCl 1 each PO Q6H PRN 06/20/17 07/16/19 06/20/17 History [Advil Cold & Sinus Caplet] Loratadine/Pseudoephedrine 1 tab PO DAILY 06/20/17 07/16/19 06/20/17 History [Claritin-D 24Hr] Aspirin [Aspirin TAB] 650 mg PO QDAY 06/22/17 07/16/19 06/21/17 History HYDROcodone/APAP 5-325 [[place] 1 each PO Q6HR PRN #20 tablet 06/22/17 07/16/19 Unknown Rx 5/325] Ibuprofen [Motrin] 800 mg PO Q8HR PRN #30 tablet 06/22/17 07/16/19 Unknown Rx Naproxen [Naprosyn] 500 mg PO BID 06/22/17 07/16/19 1 Week Ago History ~06/15/17 Amoxicillin/Potassium Clav 1 each PO BID 7 Days #14 tablet 09/01/17 07/16/19 Unknown Rx [Augmentin 875-125 Tablet] Benzonatate 200 mg PO TID PRN #30 capsule 09/01/17 07/16/19 Unknown Rx Fluticasone [Flonase] 1 spray NS QDAY #1 bottle 09/01/17 07/16/19 Unknown Rx Ibuprofen [Motrin] 800 mg PO Q8HR PRN #60 tablet 07/17/19 Unknown Rx labetaloL [Labetalol 200mg TAB] 400 mg PO BID #60 tablet 07/17/19 Unknown Rx oxyCODONE /ACETAMINOPHEN [Percocet 1 tab PO Q6HR PRN #30 tablet 07/17/19 Unknown Rx 5/325] Amoxicillin/Potassium Clav 1 each PO BID 10 Days #20 tablet 06/23/20 Unknown Rx [Augmentin 875-125 Tablet] traMADoL [Ultram] 50 mg PO Q6HR PRN #12 tablet 06/23/20 Unknown Rx ED Physical Exam - General Limitations: No Limitations General appearance: alert, in no apparent distress - Head Head exam: Present: atraumatic, normocephalic - Eye Eye exam: Present: normal appearance - ENT ENT exam: Present: mucous membranes moist - Neck Neck exam: Present: normal inspection - Respiratory Respiratory exam: Present: normal lung sounds bilaterally. Absent: respiratory distress, wheezes, stridor - Cardiovascular Cardiovascular Exam: Present: regular rate, normal rhythm, normal heart sounds. Absent: systolic murmur, diastolic murmur, rubs, gallop - GI/Abdominal GI/Abdominal exam: Present: soft, normal bowel sounds, hernia - Rectal Rectal exam: Present: deferred - Extremities Exam Extremities exam: Present: normal inspection, full ROM - Expanded Lower Extremity Exam Right Upper Leg exam: Present: laceration (right posterior thigh puncture wound ) - Back Exam Back exam: Present: normal inspection, full ROM. Absent: tenderness - Neurological Exam Neurological exam: Present: alert, oriented X3, CN II-XII intact, normal gait, reflexes normal. Absent: motor sensory deficit - Expanded Neurological Exam Expanded Patient oriented to: Present: person, place, time Speech: Present: fluid speech Motor strength exam: RLE: 5, LLE: 5 Best Eye Response ([place]): (4) open spontaneously Best Motor Response ([place]): (6) obeys commands Best Verbal Response ([place]): (5) oriented Karl[place] Total: 15 - Psychiatric Psychiatric exam: Present: normal affect, normal mood - Skin Skin exam: Present: warm, dry, normal color, abrasion, other (puncture wound ). Absent: rash ED Course Vital Signs 06/23/20 17:52 Temperature 98.5 F Pulse Rate 79 Respiratory 18 Rate Blood Pressure 150/102 O2 Sat by Pulse 100 Oximetry - Reevaluation(s) Reevaluation #1: 06/23/20 19:14 all bleeding controlled, pt given wound care instructions will be dc to home with rx, will follow up with animal control tomorrow as scheduled, take medications as rx, wound care as directed. pt verbalized agreement and understanding of discharge plan. Critical care attestation.: If time is entered above; I have spent that time in minutes in the direct care of this critically ill patient, excluding procedure time. ED Disposition Clinical Impression: Dog bite Qualifiers: Encounter type: initial encounter Qualified Code(s): W54.0XXA - Bitten by dog, initial encounter Disposition: DC-01 TO HOME OR SELFCARE Is pt being admited?: No Does the pt Need Aspirin: No Condition: Stable Instructions: Animal Bite (ED) Prescriptions: Amoxicillin/Potassium Clav [Augmentin 875-125 Tablet] 1 each PO BID 10 Days #20 tablet traMADoL [Ultram] 50 mg PO Q6HR PRN #12 tablet PRN Reason: Pain Referrals: ELANA CONTEH MD [Staff Physician] - 3-5 Days Forms: Work/School Release Form(ED) Time of Disposition: 19:13
== END 2020-06-23 19:25 | disposition home or self-care (01) ==
LOC: ED 17:46
DX: S71.151A Open bite, right thigh, initial encounter (principal); I10 Essential (primary) hypertension; E11.9 Type 2 diabetes mellitus without complications; K21.9 Gastro-esophageal reflux disease without esophagitis; G43.909 Migraine, unspecified, not intractable, without status migrainosus; Z98.890 Other specified postprocedural states; Z79.1 Long term (current) use of non-steroidal anti-inflammatories (NSAID); Z79.2 Long term (current) use of antibiotics; Z79.899 Other long term (current) drug therapy; W54.0XXA Bitten by dog, initial encounter; Y93.89 Activity, other specified; Y92.89 Other specified places as the place of occurrence of the external cause; Y99.8 Other external cause status
CPT/HCPCS: 99282

== ENCOUNTER 2020-12-12 10:39 | Emergency (ER) | payer MEDICAID ==
[2020-12-12 11:17] VITALS: BP 140/97
--- NOTE | 2020-12-12 11:19 | Event Note ---
ED Screening Note Date of service: 12/12/20 Time: 11:18 ED Screening Note: Patient complains of mid abdominal pain x2 days and left thigh pain and nodules x1 year History of pancreatitis Admits to gassiness and bloating Mild epigastric tenderness to palpation on exam Negative [place]in sign This initial assessment/diagnostic orders/clinical plan/treatment(s) is/are subject to change based on patients health status, clinical progression and re- assessment by fellow clinical providers in the ED. Further treatment and workup at subsequent clinical providers discretion. Patient/guardian urged not to elope from the ED as their condition may be serious if not clinically assessed and managed. Initial orders include: Labs
[2020-12-12 12:11] LABS: Basophils % (Auto) 0.8 % (0.0-1.8); Eosinophils % (Auto) 0.9 % (0.0-4.3); Hematocrit 37.9 % (30.3-42.9); Hemoglobin 12.7 gm/dl (10.1-14.3); Lymphocytes # (Auto) 1.9 K/mm3 (1.2-5.4); Lymphocytes % (Auto) 35.8 % (13.4-35.0); Mean Corpuscular HGB Conc 34 % (30-34); Mean Corpuscular Volume 84 fl (79-97); Monocytes # (Auto) 0.5 K/mm3 (0.0-0.8); Monocytes % (Auto) 8.8 % (0.0-7.3); Platelet Count 410 K/mm3 (140-440); Red Blood Count 4.51 M/mm3 (3.65-5.03)
[2020-12-12 12:13] LABS: Bilirubin,Urine NEG (Negative); Blood,Urine NEG (Negative); Color,Urine Yellow (Yellow); Mucus,Urine FEW /HPF; Urobilinogen,Urine < 2.0 mg/dL (<2.0)
[2020-12-12 12:51] LABS: Alanine Aminotransferase 5 units/L (7-56); Albumin 4.3 g/dL (3.9-5); BUN/Creatinine Ratio 8; Blood Urea Nitrogen 6 mg/dL (7-17); Calcium 9.5 mg/dL (8.4-10.2); Hemolysis Index 0
== END 2020-12-12 19:00 | disposition left against medical advice (07) ==
LOC: ED 10:39
DX: R10.9 Unspecified abdominal pain (principal); M79.652 Pain in left thigh; Z53.21 Procedure and treatment not carried out due to patient leaving prior to being seen by health care provider
CPT/HCPCS: 36415; 80053; 81001; 83690; 84703; 85025

== ENCOUNTER 2021-08-12 16:16 | Emergency (ER) | payer MEDICAID ==
--- NOTE | 2021-08-12 17:31 | Emergency Department Report ---
HPI - General Chief Complaint: Psych Time Seen by Provider: 08/12/21 16:44 - HPI HPI: Room 16 The patient is a 36-year-old female present with a chief complaint of suicidal ideation. Patient is very poor historian was brought in under a 1013 by police officers. The patient states that she was at home when police showed up and entered her home. She states they told her to drop the knife and when she turned to tell them to back up she was tased once. When asked what called the police the patient replies she does not know. 1013 accompanying the patient states that the patient has been paranoid and "dressed in a trash bag, aggression towards her sister. States patient "charged offices with a knife, not eating, possible catatonia/mute, talking to self." Patient denies suicidal homicidal ideation. Patient denies auditory or visual hallucinations. ED Past Medical Hx - Past Medical History Hx Hypertension: Yes (PIH) Hx Diabetes: Yes (GDM) Hx GERD: Yes Hx Headaches / Migraines: Yes Additional medical history: Childbirth, eye irritation, abd mass, Pancreatitis - Surgical History Additional Surgical History: , ovarian cyst removal - Family History Family history: no significant - Social History Smoking Status: Former Smoker Substance Use Type: None (Denies illicit drug use) - Medications Home Medications: Home Medications Medication Instructions Recorded Confirmed Last Taken Type Dextromethorphn/Acetaminoph/Cp 20 ml PO PRN PRN 06/20/17 07/16/19 06/20/17 History [Vicks Nyquil Cold & Flu Liquid] Ibuprofen/Pseudoephedrine HCl 1 each PO Q6H PRN 06/20/17 07/16/19 06/20/17 History [Advil Cold & Sinus Caplet] Loratadine/Pseudoephedrine 1 tab PO DAILY 06/20/17 07/16/19 06/20/17 History [Claritin-D 24Hr] Aspirin [Aspirin TAB] 650 mg PO QDAY 06/22/17 07/16/19 06/21/17 History HYDROcodone/APAP 5-325 [[place] 1 each PO Q6HR PRN #20 tablet 06/22/17 07/16/19 Unknown Rx 5/325] Ibuprofen [Motrin] 800 mg PO Q8HR PRN #30 tablet 11/02/17 11/26/19 Unknown Rx Naproxen [Naprosyn] 500 mg PO BID 06/22/17 07/16/19 1 Week Ago History ~06/15/17 Amoxicillin/Potassium Clav 1 each PO BID 7 Days #14 tablet 09/01/17 07/16/19 Unknown Rx [Augmentin 875-125 Tablet] Benzonatate 200 mg PO TID PRN #30 capsule 09/01/17 07/16/19 Unknown Rx Fluticasone [Flonase] 1 spray NS QDAY #1 bottle 09/01/17 07/16/19 Unknown Rx Ibuprofen [Motrin] 800 mg PO Q8HR PRN #60 tablet 07/17/19 Unknown Rx labetaloL [Labetalol 200mg TAB] 400 mg PO BID #60 tablet 07/17/19 Unknown Rx oxyCODONE /ACETAMINOPHEN [Percocet 1 tab PO Q6HR PRN #30 tablet 07/17/19 Unknown Rx 5/325] Amoxicillin/Potassium Clav 1 each PO BID 10 Days #20 tablet 06/23/20 Unknown Rx [Augmentin 875-125 Tablet] traMADoL [Ultram] 50 mg PO Q6HR PRN #12 tablet 06/23/20 Unknown Rx ED Review of Systems ROS: Stated complaint: 1013 Other details as noted in HPI Constitutional: no symptoms reported Eyes: denies: eye pain ENT: denies: throat pain Respiratory: no symptoms reported Cardiovascular: denies: chest pain Endocrine: no symptoms reported Gastrointestinal: denies: abdominal pain Genitourinary: denies: dysuria Musculoskeletal: denies: back pain Neurological: denies: headache Physical Exam - Physical Exam Vital Signs: Vital Signs 08/12/21 16:18 Temperature 98.6 F Pulse Rate 86 Respiratory 18 Rate Blood Pressure 115/78 [Left] O2 Sat by Pulse 100 Oximetry Physical Exam: GENERAL: The patient is well-developed well-nourished female lying on stretcher not appearing to be in acute distress. [] HEENT: Normocephalic. Atraumatic. Extraocular motions are intact. Patient has moist mucous membranes. NECK: Supple. Trachea midline CHEST/LUNGS: Clear to auscultation. There is no respiratory distress noted. HEART/CARDIOVASCULAR: Regular. There is no tachycardia. There is no gallop rub or murmur. ABDOMEN: Abdomen is soft, nontender. Patient has normal bowel sounds. There is no abdominal distention. SKIN: There is no rash. There is no edema. There is no diaphoresis. NEURO: The patient is awake, alert, and oriented. The patient is cooperative. The patient has no focal neurologic deficits. The patient has normal speech. GCS 15 MUSCULOSKELETAL: There is no evidence of acute injury. ED Course Vital Signs 08/12/21 16:18 Temperature 98.6 F Pulse Rate 86 Respiratory 18 Rate Blood Pressure 115/78 [Left] O2 Sat by Pulse 100 Oximetry ED Medical Decision Making - Lab Data Result diagrams: 08/12/21 17:40 08/12/21 22:57 - EKG Data -: EKG Interpreted by Mo EKG shows normal: sinus rhythm, axis Rate: normal - EKG Data When compared to previous EKG there are: previous EKG unavailable Interpretation: other (No ischemic changes seen) - Differential Diagnosis Erratic behavior Critical care attestation.: If time is entered above; I have spent that time in minutes in the direct care of this critically ill patient, excluding procedure time. ED Disposition Clinical Impression: Bizarre behavior, History of Taser shock Disposition: [address] [place] [address] Is pt being admited?: No Does the pt Need Aspirin: No Condition: Stable
[2021-08-12 18:12] LABS: Basophils % (Auto) 0.4 % (0.0-1.8); Eosinophils % (Auto) 0.6 % (0.0-4.3); Hematocrit 43.1 % (30.3-42.9); Hemoglobin 13.6 gm/dl (10.1-14.3); Lymphocytes # (Auto) 1.5 K/mm3 (1.2-5.4); Lymphocytes % (Auto) 21.5 % (13.4-35.0); Mean Corpuscular HGB Conc 32 % (30-34); Mean Corpuscular Volume 87 fl (79-97); Monocytes # (Auto) 0.4 K/mm3 (0.0-0.8); Monocytes % (Auto) 5.4 % (0.0-7.3); Platelet Count 365 K/mm3 (140-440); Red Blood Count 4.97 M/mm3 (3.65-5.03); Red Cell Distribution Width 12.9 % (13.2-15.2)
[2021-08-12 18:19] LABS: Alanine Aminotransferase 6 units/L (7-56); Albumin 4.6 g/dL (3.9-5); Blood Urea Nitrogen 8 mg/dL (7-17); Calcium 10.4 mg/dL (8.4-10.2); Hemolysis Index 11
[2021-08-12 18:20] LABS: BUN/Creatinine Ratio 11
[2021-08-12 23:04] LABS: Bilirubin,Urine NEG (Negative); Blood,Urine NEG (Negative); Color,Urine Straw (Yellow); Mucus,Urine FEW /HPF; Protein,Urine <15 mg/dL mg/dL (Negative); RBC,Urine < 1.0 /HPF (0.0-6.0); Urobilinogen,Urine < 2.0 mg/dL (<2.0); WBC,Urine < 1.0 /HPF (0.0-6.0)
[2021-08-12 23:13] LABS: Amphetamine Screen,Urine PRESUMPTIVE NEGATIVE; Benzodiazepines Screen,Urine PRESUMPTIVE NEGATIVE; Cannabinoid Screen,Urine PRESUMPTIVE NEGATIVE; Cocaine Screen,Urine PRESUMPTIVE NEGATIVE; Methadone Screen,Urine PRESUMPTIVE NEGATIVE; Opiate Screen,Urine PRESUMPTIVE NEGATIVE
--- NOTE | 2021-08-13 01:26 | Event Note ---
Date: 08/13/[address] Negron. This is a 36-year-old female who was 1013 by police. He stated that apparently the patient has been accepted at [facility] and just needs repeat BMP because of elevated potassium on the first draw as well as urinalysis for medical clearance. Repeat potassium level is normal. Urinalysis reveals no evidence of UTI. She is medically cleared for psychiatric evaluation and placement. Ellen the legal administrative secretary called [facility] and spoke with Prabhakar who states that they had not received or heard anything about this patient. Will defer to the mental health/psychiatry team regarding disposition.
[2021-08-13] MEDS ORDERED: LORazepam 2 MG/ML VIAL IV ONE (09:51)
--- NOTE | 2021-08-13 11:09 | Consultation ---
History of Present Illness - Reason for Consult Consult date: 08/13/21 Reason for consult: mental health evaluation - History of Present Psychiatric Illness Per ED Note: The patient is a 36-year-old female present with a chief complaint of suicidal ideation. Patient is very poor historian was brought in under a 1013 by police officers. The patient states that she was at home when police showed up and entered her home. She states they told her to drop the knife and when she turned to tell them to back up she was tased once. When asked what called the police the patient replies she does not know. 1013 accompanying the patient states that the patient has been paranoid and "dressed in a trash bag, aggression towards her sister. States patient "charged offices with a knife, not eating, possible catatonia/mute, talking to self." Patient denies suicidal homicidal ideation. Patient denies auditory or visual hallucinations. The patient was seen in the middle of [facility]; she refused to speak with this marketing writer. PAST PSYCHIATRIC HISTORY- Unable to assess PAST MEDICAL HISTORY: None reported Family Psychiatric History: None reported or documented SOCIAL HISTORY- Unable to assess REVIEW OF SYSTEMS- Unable to assess MENTAL STATUS EXAMINATION- Unable to assess Assessment and Plan Treatment 1013 Medical: Per primary Sitter: Defer to [facility] Disposition: Recommend acute inpatient treatment Will follow on Monday if not transferred. Medications and Allergies Medications and Allergies Medications and Allergies Allergies Allergy/AdvReac Type Severity Reaction Status Date / Time No Known Allergies Allergy Verified 06/20/17 11:15 Home Medications Medication Instructions Recorded Confirmed Last Taken Type Dextromethorphn/Acetaminoph/Cp 20 ml PO PRN PRN 06/20/17 07/16/19 06/20/17 History [Vicks Nyquil Cold & Flu Liquid] Ibuprofen/Pseudoephedrine HCl 1 each PO Q6H PRN 06/20/17 07/16/19 06/20/17 History [Advil Cold & Sinus Caplet] Loratadine/Pseudoephedrine 1 tab PO DAILY 06/20/17 07/16/19 06/20/17 History [Claritin-D 24Hr] Aspirin [Aspirin TAB] 650 mg PO QDAY 06/22/17 07/16/19 06/21/17 History HYDROcodone/APAP 5-325 [[place] 1 each PO Q6HR PRN #20 tablet 06/22/17 07/16/19 Unknown Rx 5/325] Ibuprofen [Motrin] 800 mg PO Q8HR PRN #30 tablet 06/22/17 07/16/19 Unknown Rx Naproxen [Naprosyn] 500 mg PO BID 06/22/17 07/16/19 1 Week Ago History ~06/15/17 Amoxicillin/Potassium Clav 1 each PO BID 7 Days #14 tablet 09/01/17 07/16/19 Unknown Rx [Augmentin 875-125 Tablet] Benzonatate 200 mg PO TID PRN #30 capsule 09/01/17 07/16/19 Unknown Rx Fluticasone [Flonase] 1 spray NS QDAY #1 bottle 09/01/17 07/16/19 Unknown Rx Ibuprofen [Motrin] 800 mg PO Q8HR PRN #60 tablet 07/17/19 Unknown Rx labetaloL [Labetalol 200mg TAB] 400 mg PO BID #60 tablet 07/17/19 Unknown Rx oxyCODONE /ACETAMINOPHEN [Percocet 1 tab PO Q6HR PRN #30 tablet 07/17/19 Unknown Rx 5/325] Amoxicillin/Potassium Clav 1 each PO BID 10 Days #20 tablet 06/23/20 Unknown Rx [Augmentin 875-125 Tablet] traMADoL [Ultram] 50 mg PO Q6HR PRN #12 tablet 06/23/20 Unknown Rx Mental Status Exam - Vital signs Last Vital Signs Temp 97.7 F 08/13/21 03:02 Pulse 90 08/13/21 03:02 Resp 18 08/13/21 03:02 BP 121/80 08/13/21 03:02 Pulse Ox 100 08/13/21 06:05 Results Result Diagrams: 08/12/21 17:40 08/12/21 22:57 Abnormal lab results 08/12/21 08/12/21 08/12/21 Range/Units 17:40 17:40 17:40 Hct 43.1 H (30.3-42.9) % MCH 27 L (28-32) pg RDW 12.9 L (13.2-15.2) % Seg Neutrophils % 72.1 H (40.0-70.0) % Potassium 5.5 H (3.6-5.0) mmol/L Glucose 108 H (65-100) mg/dL Calcium 10.4 H (8.4-10.2) mg/dL ALT 6 L (7-56) units/L Salicylates < 0.3 L (2.8-20.0) mg/dL Acetaminophen (10.0-30.0) ug/mL 08/12/ Range/Units 17:40 Hct (30.3-42.9) % MCH (28-32) pg RDW (13.2-15.2) % Seg Neutrophils % (40.0-70.0) % Potassium (3.6-5.0) mmol/L Glucose (65-100) mg/dL Calcium (8.4-10.2) mg/dL ALT (7-56) units/L Salicylates (2.8-20.0) mg/dL Acetaminophen 5.0 L (10.0-30.0) ug/mL All other labs normal.
[2021-08-13] MEDS ORDERED: LORazepam 2 MG/ML VIAL IM PRN (11:55)
[2021-08-13] MEDS ORDERED: HALOPERIDOL LACTATE 5 MG/1 ML INJ IM PRN (11:55)
--- NOTE | 2021-08-13 11:55 | Event Note ---
Date: 08/13/21 The patient was evaluated in the emergency department for symptoms described in the history of present illness. He/she was evaluated in the context of the global COVID-19 pandemic, which necessitated consideration that the patient might be at risk for infection with the virus that causes COVID-19. Institutional protocols and algorithms that pertain to the evaluation of patients at risk for COVID-19 are in a state of rapid change based on information released by regulatory bodies including the CDC and federal and state organizations. These policies and algorithms were followed during the patient's care in the emergency department. Please note that these policies, procedures and recommendations changed on a rapid basis. Laboratory studies, vital signs, nursing documentation, ER documentation, and psychiatric documentation are reviewed and appreciated. Nursing team reports no acute events this morning or concerns. The patient is awake and does not appear to be in any acute distress. The patient to me denies physical pain. She tells me that she is not homicidal suicidal The patient was deemed medically suitable for psychiatric disposition and placement during her initial ER evaluation. The patient continues to remain medically suitable for psychiatric placement and disposition. sHe is currently pending psychiatric placement. Vital Signs 08/12/21 08/12/21 08/13/21 16:18 21:58 03:02 Temperature 98.6 F 97.9 F 97.7 F Pulse Rate 86 91 H 90 Respiratory 18 18 18 Rate Blood Pressure 115/78 129/85 121/80 [Left] O2 Sat by Pulse 100 100 100 Oximetry 08/13/21 06:05 Temperature Pulse Rate Respiratory Rate Blood Pressure [Left] O2 Sat by Pulse 100 Oximetry Lab Results 08/12/21 08/12/21 08/12/21 Range/Units 17:40 17:40 17:40 WBC 7.1 (4.5-11.0) K/mm3 RBC 4.97 (3.65-5.03) M/mm3 Hgb 13.6 (10.1-14.3) gm/dl Hct 43.1 H (30.3-42.9) % MCV 87 (79-97) fl MCH 27 L (28-32) pg MCHC 32 (30-34) % RDW 12.9 L (13.2-15.2) % Plt Count 365 (140-440) K/mm3 Lymph % (Auto) 21.5 (13.4-35.0) % [place] % (Auto) 5.4 (0.0-7.3) % Eos % (Auto) 0.6 (0.0-4.3) % Baso % (Auto) 0.4 (0.0-1.8) % Lymph # (Auto) 1.5 (1.2-5.4) K/mm3 [place] # (Auto) 0.4 (0.0-0.8) K/mm3 Eos # (Auto) 0.0 (0.0-0.4) K/mm3 Baso # (Auto) 0.0 (0.0-0.1) K/mm3 Seg Neutrophils % 72.1 H (40.0-70.0) % Seg Neutrophils # 5.1 (1.8-7.7) K/mm3 Sodium 137 (137-145) mmol/L Potassium 5.5 H (3.6-5.0) mmol/L Chloride 100.8 (98-107) mmol/L Carbon Dioxide 23 (22-30) mmol/L Anion Gap 19 mmol/L BUN 8 (7-17) mg/dL Creatinine 0.7 (0.6-1.2) mg/dL Estimated GFR > 60 ml/min BUN/Creatinine Ratio 11 % Glucose 108 H (65-100) mg/dL Calcium 10.4 H (8.4-10.2) mg/dL Total Bilirubin 0.20 (0.1-1.2) mg/dL AST 14 (5-40) units/L ALT 6 L (7-56) units/L Alkaline Phosphatase 71 (35-129) units/L Total Protein 8.1 (6.3-8.2) g/dL Albumin 4.6 (3.9-5) g/dL Albumin/Globulin Ratio 1.3 % HCG, Qual (Negative) Urine Color (Yellow) Urine Turbidity (Clear) Urine pH (5.0-7.0) Ur Specific Anderson (1.003-1.030) Urine Protein (Negative) mg/dL Urine Glucose (UA) (Negative) mg/dL Urine Ketones (Negative) mg/dL Urine Blood (Negative) Urine Nitrite (Negative) Urine Bilirubin (Negative) Urine Urobilinogen (<2.0) mg/dL Ur Leukocyte Esterase (Negative) Urine WBC (Auto) (0.0-6.0) /HPF Urine RBC (Auto) (0.0-6.0) /HPF Urine Mucus /HPF Salicylates < 0.3 L (2.8-20.0) mg/dL Urine Opiates Screen Urine Methadone Screen Acetaminophen (10.0-30.0) ug/mL Ur Barbiturates Screen Ur Phencyclidine Scrn Ur Amphetamines Screen U Benzodiazepines Scrn Urine Cocaine Screen U Marijuana (THC) Screen Drugs of Abuse Note Plasma/Serum Alcohol (0-0.07) % 08/12/21 08/12/21 08/12/21 Range/Units 17:40 17:40 17:40 WBC (4.5-11.0) K/mm3 RBC (3.65-5.03) M/mm3 Hgb (10.1-14.3) gm/dl Hct (30.3-42.9) % MCV (79-97) fl MCH (28-32) pg MCHC (30-34) % RDW (13.2-15.2) % Plt Count (140-440) K/mm3 Lymph % (Auto) (13.4-35.0) % [place] % (Auto) (0.0-7.3) % Eos % (Auto) (0.0-4.3) % Baso % (Auto) (0.0-1.8) % Lymph # (Auto) (1.2-5.4) K/mm3 [place] # (Auto) (0.0-0.8) K/mm3 Eos # (Auto) (0.0-0.4) K/mm3 Baso # (Auto) (0.0-0.1) K/mm3 Seg Neutrophils % (40.0-70.0) % Seg Neutrophils # (1.8-7.7) K/mm3 Sodium (137-145) mmol/L Potassium (3.6-5.0) mmol/L Chloride (98-107) mmol/L Carbon Dioxide (22-30) mmol/L Anion Gap mmol/L BUN (7-17) mg/dL Creatinine (0.6-1.2) mg/dL Estimated GFR ml/min BUN/Creatinine Ratio % Glucose (65-100) mg/dL Calcium (8.4-10.2) mg/dL Total Bilirubin (0.1-1.2) mg/dL AST (5-40) units/L ALT (7-56) units/L Alkaline Phosphatase (35-129) units/L Total Protein (6.3-8.2) g/dL Albumin (3.9-5) g/dL Albumin/Globulin Ratio % HCG, Qual Negative (Negative) Urine Color (Yellow) Urine Turbidity (Clear) Urine pH (5.0-7.0) Ur Specific Anderson (1.003-1.030) Urine Protein (Negative) mg/dL Urine Glucose (UA) (Negative) mg/dL Urine Ketones (Negative) mg/dL Urine Blood (Negative) Urine Nitrite (Negative) Urine Bilirubin (Negative) Urine Urobilinogen (<2.0) mg/dL Ur Leukocyte Esterase (Negative) Urine WBC (Auto) (0.0-6.0) /HPF Urine RBC (Auto) (0.0-6.0) /HPF Urine Mucus /HPF Salicylates (2.8-20.0) mg/dL Urine Opiates Screen Urine Methadone Screen Acetaminophen 5.0 L (10.0-30.0) ug/mL Ur Barbiturates Screen Ur Phencyclidine Scrn Ur Amphetamines Screen U Benzodiazepines Scrn Urine Cocaine Screen U Marijuana (THC) Screen Drugs of Abuse Note Plasma/Serum Alcohol < 0.01 (0-0.07) % 08/12/21 08/12/21 08/12/21 Range/Units 21:11 21:11 22:57 WBC (4.5-11.0) K/mm3 RBC (3.65-5.03) M/mm3 Hgb (10.1-14.3) gm/dl Hct (30.3-42.9) % MCV (79-97) fl MCH (28-32) pg MCHC (30-34) % RDW (13.2-15.2) % Plt Count (140-440) K/mm3 Lymph % (Auto) (13.4-35.0) % [place] % (Auto) (0.0-7.3) % Eos % (Auto) (0.0-4.3) % Baso % (Auto) (0.0-1.8) % Lymph # (Auto) (1.2-5.4) K/mm3 [place] # (Auto) (0.0-0.8) K/mm3 Eos # (Auto) (0.0-0.4) K/mm3 Baso # (Auto) (0.0-0.1) K/mm3 Seg Neutrophils % (40.0-70.0) % Seg Neutrophils # (1.8-7.7) K/mm3 Sodium (137-145) mmol/L Potassium 3.9 D (3.6-5.0) mmol/L Chloride (98-107) mmol/L Carbon Dioxide (22-30) mmol/L Anion Gap mmol/L BUN (7-17) mg/dL Creatinine (0.6-1.2) mg/dL Estimated GFR ml/min BUN/Creatinine Ratio % Glucose (65-100) mg/dL Calcium (8.4-10.2) mg/dL Total Bilirubin (0.1-1.2) mg/dL AST (5-40) units/L ALT (7-56) units/L Alkaline Phosphatase (35-129) units/L Total Protein (6.3-8.2) g/dL Albumin (3.9-5) g/dL Albumin/Globulin Ratio % HCG, Qual (Negative) Urine Color Straw (Yellow) Urine Turbidity Clear (Clear) Urine pH 6.0 (5.0-7.0) Ur Specific [place] 1.008 (1.003-1.030) Urine Protein <15 mg/dl (Negative) mg/dL Urine Glucose (UA) Neg (Negative) mg/dL Urine Ketones Neg (Negative) mg/dL Urine Blood Neg (Negative) Urine Nitrite Neg (Negative) Urine Bilirubin Neg (Negative) Urine Urobilinogen < 2.0 (<2.0) mg/dL Ur Leukocyte Esterase Neg (Negative) Urine WBC (Auto) < 1.0 (0.0-6.0) /HPF Urine RBC (Auto) < 1.0 (0.0-6.0) /HPF Urine Mucus Few /HPF Salicylates (2.8-20.0) mg/dL Urine Opiates Screen Presumptive negative Urine Methadone Screen Presumptive negative Acetaminophen (10.0-30.0) ug/mL Ur Barbiturates Screen Presumptive negative Ur Phencyclidine Scrn Presumptive negative Ur Amphetamines Screen Presumptive negative U Benzodiazepines Scrn Presumptive negative Urine Cocaine Screen Presumptive negative U Marijuana (THC) Screen Presumptive negative Drugs of Abuse Note Disclamer Plasma/Serum Alcohol (0-0.07) %
--- NOTE | 2021-08-14 10:00 | Progress Note ---
Subjective - Reason for Consult Consult date: 08/14/21 Reason for consult: mental health evaluation - Chief Complaint Chief complaint: The patient was seen this morning, she reports doing well. She states sleep and appetite as good. Per nurse, no aggressive behaviors noted. The patient denies any current suicidal/homicidal ideation and denies hallucinations. PAST PSYCHIATRIC HISTORY Diagnoses: Denies Suicide attempts or Self-harm behavior: Denies Prior psychiatric hospitalizations: Denies Substance Abuse history: Denies Previous psychiatric medications tried: Denies Outpatient treatment: Denies PAST MEDICAL HISTORY: None reported Family Psychiatric History: None reported or documented SOCIAL HISTORY Marital Status: single Living Arrangements: Lives alone Employment Status: Unemployed Access to guns/weapons: Denies Education: some college History of Abuse: Denies Legal History: None reported REVIEW OF SYSTEMS Constitutional: Negative for weight loss ENT: Negative for stridor Respiratory: Negative for cough or hemoptysis All other systems reviewed and are negative MENTAL STATUS EXAMINATION General Appearance and Behavior: Age appropriate, good hygiene, not wearing appropriate clothes, good eye contact, cooperative polite with questioning. Cooperation: Participating/engaged Psychomotor Behavior: Psychomotor normal Mood: "ok" Affect and affective range: Congruent with stated mood Thought Process: goal directed Thought Content: reality oriented Speech: normal tone and pace Suicidal Ideation: Denies Homicidal Ideation: Denies HI Hallucinations: Denies Delusions: None elicited Impulse Control: Limited Insight and Judgment: Limited insight and good judgment Memory: Normal Attention: Normal Orientation: Alert, oriented, Assessment and Plan Treatment DC 1013 Medical: Per primary Sitter: Defer to priamary Disposition: Do not recommend acute inpatient treatment. [facility] Room Helper will provide patient with psychiatric out patient resources. Will sign off. Medications and Allergies Mental Status Exam - Vital signs Last Vital Signs Temp 98.8 F 08/13/21 19:40 Pulse 108 H 08/13/21 19:40 Resp 22 08/13/21 19:40 BP 106/79 08/13/21 19:40 Pulse Ox 99 08/13/21 21:23
--- NOTE | 2021-08-14 12:00 | Event Note ---
Date: 08/14/21 The patient was evaluated in the emergency department for symptoms described in the history of present illness. He/she was evaluated in the context of the global COVID-19 pandemic, which necessitated consideration that the patient might be at risk for infection with the virus that causes COVID-19. Institutional protocols and algorithms that pertain to the evaluation of patients at risk for COVID-19 are in a state of rapid change based on information released by regulatory bodies including the CDC and federal and state organizations. These policies and algorithms were followed during the patient's care in the emergency department. Please note that these policies, procedures and recommendations changed on a rapid basis. Laboratory studies, vital signs, nursing documentation, ER documentation, and psychiatric documentation are reviewed and appreciated. Nursing team reports no acute events this morning or concerns. The patient is awake and ambulating and does not appear to be in any acute distress. The patient was deemed medically suitable for psychiatric disposition and placement during his initial ER evaluation. The patient continues to remain medically suitable for psychiatric placement and disposition. The psychiatric team have now recommended discharge and discontinuation of 1013. The patient will therefore be discharged While patient is Covid 13+, her vital signs have been stable, she is in no respiratory distress, and she does not medically require admission for COVID-19. Vital Signs 08/12/21 08/12/21 08/13/21 16:18 21:58 03:02 Temperature 98.6 F 97.9 F 97.7 F Pulse Rate 86 91 H 90 Respiratory 18 18 18 Rate Blood Pressure 115/78 129/85 121/80 [Left] O2 Sat by Pulse 100 100 100 Oximetry 08/13/21 08/13/21 08/13/21 06:05 19:40 21:23 Temperature 98.8 F Pulse Rate 108 H Respiratory 22 Rate Blood Pressure 106/79 [Left] O2 Sat by Pulse 100 99 99 Oximetry
[2021-08-14 12:31] VITALS: BP 138/88
--- NOTE | 2021-08-16 10:31 | Electrocardiograph Report ---
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
== END 2021-08-14 13:50 | disposition home or self-care (01) ==
LOC: ED 16:16
DX: R46.1 Bizarre personal appearance (principal); Z86.74 Personal history of sudden cardiac arrest; Z20.822 Contact with and (suspected) exposure to COVID-19
CPT/HCPCS: 36415; 80053; 80307; 81001; 84132; 84703; 85025; 93005; 96372; 96374; 99284; J2060; U0003; 80320; G0480

== ENCOUNTER 2021-09-17 19:11 | Emergency (ER) | payer MEDICAID ==
[2021-09-17] MEDS ORDERED: LORazepam 2 MG/ML VIAL IV ONE (20:03)
--- NOTE | 2021-09-17 20:05 | Emergency Department Report ---
ED General Adult HPI - General Chief complaint: Medical Clearance Stated complaint: medical clearance Time Seen by Provider: 09/17/21 19:54 Source: patient, EMS ( EMS documentation not available at time of chart dictation ), RN notes reviewed, old records reviewed Mode of arrival: Stretcher Limitations: No Limitations - History of Present Illness Initial comments: The patient was evaluated in the emergency department for symptoms described in the history of present illness. He/she was evaluated in the context of the global COVID-19 pandemic, which necessitated consideration that the patient might be at risk for infection with the virus that causes COVID-19. Institutional protocols and algorithms that pertain to the evaluation of patients at risk for COVID-19 are in a state of rapid change based on information released by regulatory bodies including the CDC and federal and state organizations. These policies and algorithms were followed during the patient's care in the emergency department. Please note that these policies, procedures and recommendations changed on a rapid basis. During the history and physical examination, I am chaperoned by nurse Terrie Jimenez The patient is a 36-year-old female. She is referred to the emergency room by local psychiatric facility for medical clearance. The patient has reportedly been on Bactrim for unclear reasons. The patient is referred to the emergency room for medical clearance. The patient reports an occipital headache for a few weeks. She is not homicidal suicidal. She reports that she is not having hallucinations. She endorses suprapubic abdominal pain, and dysuria. The patient also reports that she feels like she is drooling. The patient denies skin rash. The patient reports that she is not experiencing hallucinations. The patient recently had a negative Covid test. Her current medications include Benadryl, Haldol, Ativan, and Bactrim. Her Bactrim was started for 7 days, twice daily, and is supposed to have been discontinued on September 17, 2021. She also takes acetaminophen, magnesium hydroxide, and ibuprofen. The patient denies focal extremity weakness/numbness. The patient was also referred to the emergency room for medical clearance, and concerned that she might be having allergic reaction from Bactrim. -: Gradual, days(s) Location: head Consistency: intermittent Improves with: none Worsens with: none - Related Data Home Medications Medication Instructions Recorded Confirmed Last Taken Dextromethorphn/Acetaminoph/Cp 20 ml PO PRN PRN 06/20/17 07/16/19 06/20/17 [Vicks Nyquil Cold & Flu Liquid] Ibuprofen/Pseudoephedrine HCl 1 each PO Q6H PRN 06/20/17 07/16/19 06/20/17 [Advil Cold & Sinus Caplet] Loratadine/Pseudoephedrine 1 tab PO DAILY 06/20/17 07/16/19 06/20/17 [Claritin-D 24Hr] Aspirin [Aspirin TAB] 650 mg PO QDAY 06/22/17 07/16/19 06/21/17 Naproxen [Naprosyn] 500 mg PO BID 06/22/17 07/16/19 1 Week Ago ~06/15/17 Previous Rx's Medication Instructions Recorded Last Taken Type HYDROcodone/APAP 5-325 [[place] 1 each PO Q6HR PRN #20 tablet 06/22/17 Unknown Rx 5/325] Ibuprofen [Motrin] 800 mg PO Q8HR PRN #30 tablet 06/22/17 Unknown Rx Amoxicillin/Potassium Clav 1 each PO BID 7 Days #14 tablet 09/01/17 Unknown Rx [Augmentin 875-125 Tablet] Benzonatate 200 mg PO TID PRN #30 capsule 09/01/17 Unknown Rx Fluticasone [Flonase] 1 spray NS QDAY #1 bottle 09/01/17 Unknown Rx Ibuprofen [Motrin] 800 mg PO Q8HR PRN #60 tablet 07/17/19 Unknown Rx labetaloL [Labetalol 200mg TAB] 400 mg PO BID #60 tablet 07/17/19 Unknown Rx oxyCODONE /ACETAMINOPHEN [Percocet 1 tab PO Q6HR PRN #30 tablet 07/17/19 Unknown Rx 5/325] Amoxicillin/Potassium Clav 1 each PO BID 10 Days #20 tablet 06/23/20 Unknown Rx [Augmentin 875-125 Tablet] traMADoL [Ultram] 50 mg PO Q6HR PRN #12 tablet 06/23/20 Unknown Rx Allergies Allergy/AdvReac Type Severity Reaction Status Date / Time No Known Allergies Allergy Verified 06/20/17 11:15 ED Review of Systems ROS: Stated complaint: ALLERGIC REACTION Other details as noted in HPI Constitutional: malaise, weakness. denies: fever Eyes: denies: vision change ENT: denies: throat pain, dental pain Respiratory: denies: cough Cardiovascular: denies: chest pain Gastrointestinal: abdominal pain (Suprapubic abdominal pain). denies: vomiting, diarrhea Genitourinary: dysuria Musculoskeletal: myalgia Neurological: headache, weakness (Generalized weakness) Psychiatric: denies: homicidal thoughts, suicidal thoughts ED Past Medical Hx - Past Medical History Previous Medical History?: No Hx Hypertension: Yes (PIH) Hx Diabetes: Yes (GDM) Hx Deep Vein Thrombosis: No Hx GERD: Yes Hx Renal Disease: No Hx Sickle Cell Disease: No Hx Headaches / Migraines: Yes Hx Seizures: No Hx Asthma: No Additional medical history: Childbirth, eye irritation, abd mass, Pancreatitis - Surgical History Additional Surgical History: , ovarian cyst removal - Social History Smoking Status: Former Smoker Substance Use Type: None (Denies illicit drug use) - Medications Home Medications: Home Medications Medication Instructions Recorded Confirmed Last Taken Type Dextromethorphn/Acetaminoph/Cp 20 ml PO PRN PRN 06/20/17 07/16/19 06/20/17 History [Vicks Nyquil Cold & Flu Liquid] Ibuprofen/Pseudoephedrine HCl 1 each PO Q6H PRN 06/20/17 07/16/19 06/20/17 History [Advil Cold & Sinus Caplet] Loratadine/Pseudoephedrine 1 tab PO DAILY 06/20/17 07/16/19 06/20/17 History [Claritin-D 24Hr] Aspirin [Aspirin TAB] 650 mg PO QDAY 06/22/17 07/16/19 06/21/17 History HYDROcodone/APAP 5-325 [[place] 1 each PO Q6HR PRN #20 tablet 06/22/17 07/16/19 Unknown Rx 5/325] Ibuprofen [Motrin] 800 mg PO Q8HR PRN #30 tablet 06/22/17 07/16/19 Unknown Rx Naproxen [Naprosyn] 500 mg PO BID 06/22/17 07/16/19 1 Week Ago History ~06/15/17 Amoxicillin/Potassium Clav 1 each PO BID 7 Days #14 tablet 09/01/17 07/16/19 Unknown Rx [Augmentin 875-125 Tablet] Benzonatate 200 mg PO TID PRN #30 capsule 09/01/17 07/16/19 Unknown Rx Fluticasone [Flonase] 1 spray NS QDAY #1 bottle 09/01/17 07/16/19 Unknown Rx Ibuprofen [Motrin] 800 mg PO Q8HR PRN #60 tablet 07/17/19 Unknown Rx labetaloL [Labetalol 200mg TAB] 400 mg PO BID #60 tablet 07/17/19 Unknown Rx oxyCODONE /ACETAMINOPHEN [Percocet 1 tab PO Q6HR PRN #30 tablet 07/17/19 Unknown Rx 5/325] Amoxicillin/Potassium Clav 1 each PO BID 10 Days #20 tablet 06/23/20 Unknown Rx [Augmentin 875-125 Tablet] traMADoL [Ultram] 50 mg PO Q6HR PRN #12 tablet 06/23/20 Unknown Rx ED Physical Exam - General Limitations: No Limitations General appearance: alert, anxious - Head Head exam: Present: atraumatic, normocephalic - Eye Eye exam: Present: normal appearance, PERRL, EOMI. Absent: nystagmus - ENT ENT exam: Present: normal exam, normal orophraynx, mucous membranes moist, normal external ear exam, other (There is no stridor. There is no dysphonia. The tongue is midline. Patient speaking in complete sentences) - Neck Neck exam: Present: normal inspection, full ROM. Absent: tenderness, meningismus - Respiratory Respiratory exam: Present: normal lung sounds bilaterally. Absent: respiratory distress, wheezes, rales, rhonchi, stridor, decreased breath sounds - Cardiovascular Cardiovascular Exam: Present: regular rate, normal rhythm, normal heart sounds. Absent: bradycardia, tachycardia, irregular rhythm, systolic murmur, diastolic murmur, rubs, gallop - GI/Abdominal GI/Abdominal exam: Present: soft, normal bowel sounds. Absent: distended, tenderness, guarding, rebound, rigid, pulsatile mass - External exam: Present: normal external exam (Chaperoned by nurse Elo Jimenez) - Extremities Exam Extremities exam: Present: normal inspection, full ROM, pedal edema (1-2+ edema in the bilateral lower extremities), other (2+ pulses noted in the bilateral upper and lower extremities. There is no palpable cord. negative Homans sign. Muscular compartments are soft. The pelvis is stable.). Absent: calf tenderness - Back Exam Back exam: Present: normal inspection, full ROM. Absent: tenderness, CVA tenderness (R), CVA tenderness (L), muscle spasm, paraspinal tenderness, vertebr al tenderness - Neurological Exam Neurological exam: Present: alert, oriented X3, normal gait (Patient walks with a broad-based but steady gait.), other (No facial droop. Tongue midline. Extraocular movements intact bilaterally. Facial sensation intact to light touch in V1, V2, V3 distribution bilaterally. 5 and a 5 strength in 4 extremities. Sensation intact to light touch in 4 extremities.). Absent: motor sensory deficit, reflexes normal (There is fatigable clonus in the bilateral lower extremities, 2-3 beats. Patient hyperreflexic in the bilateral biceps, quadriceps reflex distribution.) - Psychiatric Psychiatric exam: Present: anxious. Absent: homicidal ideation, suicidal ideation - Skin Skin exam: Present: warm, dry, intact, normal color. Absent: rash ED Course Vital Signs 09/17/21 09/17/21 09/17/21 20:08 20:30 21:43 Temperature 98.6 F 98.4 F Pulse Rate 102 H Respiratory 18 Rate Blood Pressure 129/88 [Left] O2 Sat by Pulse 99 100 Oximetry - Reevaluation(s) Reevaluation #1: 09/17/21 21:35 Differential diagnosis, including the not limited to: Medication side effect, migraine headache, tension headache, cluster headache, anxiety, encounter for medical screening examination Assessment and plan: 36-year-old female, who was afebrile, with reassuring vital signs, cooperative but anxious, not homicidal suicidal, with a GCS of 15. She does have some tremors, she has minimal hyperreflexia, fatigable clonus, without meningeal signs, with no signs of stridor, airway compromise, or cutaneous rash. Her presentation today at this time is not consistent with an allergic reaction. Her laboratory studies are nonactionable. A noncontrast CT scan of the brain is negative for acute findings. Urinalysis is not consistent with UTI. There is no right lower quadrant tenderness, rebound or guarding. Suspect that tremors, hyperreflexia and clonus likely secondary to haloperidol She does not appear to have an emergent medical condition present at this time. She will need to follow-up with an outpatient primary care doctor, psychiatrist and neurologist for her long-term psychiatric issues. 09/17/21 21:49 EKG unremarkable. Vital signs unremarkable. Tachycardia resolved. Resting comfortably in stretcher. Patient may be discharged at this time back to her psychiatric facility. ED Medical Decision Making - Lab Data Result diagrams: 09/17/21 20:14 09/17/21 20:14 Vital Signs 09/17/21 09/17/21 20:08 20:30 Temperature 98.6 F O2 Sat by Pulse 99 Oximetry Lab Results 09/17/21 09/17/21 09/17/21 Range/Units 20:14 20:14 20:14 WBC 7.9 (4.5-11.0) K/mm3 RBC 3.78 (3.65-5.03) M/mm3 Hgb 10.4 (10.1-14.3) gm/dl Hct 32.7 (30.3-42.9) % MCV 87 (79-97) fl MCH 28 (28-32) pg MCHC 32 (30-34) % RDW 14.0 (13.2-15.2) % Plt Count 306 (140-440) K/mm3 Lymph % (Auto) 29.5 (13.4-35.0) % [place] % (Auto) 11.3 H (0.0-7.3) % Eos % (Auto) 1.3 (0.0-4.3) % Baso % (Auto) 0.3 (0.0-1.8) % Lymph # (Auto) 2.3 (1.2-5.4) K/mm3 [place] # (Auto) 0.9 H (0.0-0.8) K/mm3 Eos # (Auto) 0.1 (0.0-0.4) K/mm3 Baso # (Auto) 0.0 (0.0-0.1) K/mm3 Seg Neutrophils % 57.6 (40.0-70.0) % Seg Neutrophils # 4.5 (1.8-7.7) K/mm3 Sodium 140 (137-145) mmol/L Potassium 4.3 (3.6-5.0) mmol/L Chloride 102.6 (98-107) mmol/L Carbon Dioxide 24 (22-30) mmol/L Anion Gap 18 mmol/L BUN 9 (7-17) mg/dL Creatinine 0.6 (0.6-1.2) mg/dL Estimated GFR > 60 ml/min BUN/Creatinine Ratio 15 % Glucose 98 (65-100) mg/dL Calcium 9.3 (8.4-10.2) mg/dL Magnesium 1.90 (1.7-2.3) mg/dL Total Bilirubin 0.20 (0.1-1.2) mg/dL AST 21 (5-40) units/L ALT 10 (7-56) units/L Alkaline Phosphatase 66 (35-129) units/L Total Creatine Kinase 305 H (30-135) units/L Total Protein 7.0 (6.3-8.2) g/dL Albumin 3.9 (3.9-5) g/dL Albumin/Globulin Ratio 1.3 % TSH (0.270-4.200) mlU/mL Free T4 1.05 (0.76-1.46) ng/dL HCG, Quant (0-4) mIU/mL Urine Color (Yellow) Urine Turbidity (Clear) Urine pH (5.0-7.0) Ur Specific Shorter (1.003-1.030) Urine Protein (Negative) mg/dL Urine Glucose (UA) (Negative) mg/dL Urine Ketones (Negative) mg/dL Urine Blood (Negative) Urine Nitrite (Negative) Urine Bilirubin (Negative) Urine Urobilinogen (<2.0) mg/dL Ur Leukocyte Esterase (Negative) Urine WBC (Auto) (0.0-6.0) /HPF Urine RBC (Auto) (0.0-6.0) /HPF U Epithel Cells (Auto) (0-13.0) /HPF Salicylates (2.8-20.0) mg/dL Acetaminophen (10.0-30.0) ug/mL Plasma/Serum Alcohol (0-0.07) % 09/17/21 09/17/21 09/17/21 Range/Units 20:14 20:14 20:14 WBC (4.5-11.0) K/mm3 RBC (3.65-5.03) M/mm3 Hgb (10.1-14.3) gm/dl Hct (30.3-42.9) % MCV (79-97) fl MCH (28-32) pg MCHC (30-34) % RDW (13.2-15.2) % Plt Count (140-440) K/mm3 Lymph % (Auto) (13.4-35.0) % [place] % (Auto) (0.0-7.3) % Eos % (Auto) (0.0-4.3) % Baso % (Auto) (0.0-1.8) % Lymph # (Auto) (1.2-5.4) K/mm3 [place] # (Auto) (0.0-0.8) K/mm3 Eos # (Auto) (0.0-0.4) K/mm3 Baso # (Auto) (0.0-0.1) K/mm3 Seg Neutrophils % (40.0-70.0) % Seg Neutrophils # (1.8-7.7) K/mm3 Sodium (137-145) mmol/L Potassium (3.6-5.0) mmol/L Chloride (98-107) mmol/L Carbon Dioxide (22-30) mmol/L Anion Gap mmol/L BUN (7-17) mg/dL Creatinine (0.6-1.2) mg/dL Estimated GFR ml/min BUN/Creatinine Ratio % Glucose (65-100) mg/dL Calcium (8.4-10.2) mg/dL Magnesium (1.7-2.3) mg/dL Total Bilirubin (0.1-1.2) mg/dL AST (5-40) units/L ALT (7-56) units/L Alkaline Phosphatase (35-129) units/L Total Creatine Kinase (30-135) units/L Total Protein (6.3-8.2) g/dL Albumin (3.9-5) g/dL Albumin/Globulin Ratio % TSH 2.240 (0.270-4.200) mlU/mL Free T4 (0.76-1.46) ng/dL HCG, Quant < 2 (0-4) mIU/mL Urine Color (Yellow) Urine Turbidity (Clear) Urine pH (5.0-7.0) Ur Specific Shorter (1.003-1.030) Urine Protein (Negative) mg/dL Urine Glucose (UA) (Negative) mg/dL Urine Ketones (Negative) mg/dL Urine Blood (Negative) Urine Nitrite (Negative) Urine Bilirubin (Negative) Urine Urobilinogen (<2.0) mg/dL Ur Leukocyte Esterase (Negative) Urine WBC (Auto) (0.0-6.0) /HPF Urine RBC (Auto) (0.0-6.0) /HPF U Epithel Cells (Auto) (0-13.0) /HPF Salicylates < 0.3 L (2.8-20.0) mg/dL Acetaminophen (10.0-30.0) ug/mL Plasma/Serum Alcohol (0-0.07) % 09/17/21 09/17/21 09/17/21 Range/Units 20:14 20:14 20:30 WBC (4.5-11.0) K/mm3 RBC (3.65-5.03) M/mm3 Hgb (10.1-14.3) gm/dl Hct (30.3-42.9) % MCV (79-97) fl MCH (28-32) pg MCHC (30-34) % RDW (13.2-15.2) % Plt Count (140-440) K/mm3 Lymph % (Auto) (13.4-35.0) % [place] % (Auto) (0.0-7.3) % Eos % (Auto) (0.0-4.3) % Baso % (Auto) (0.0-1.8) % Lymph # (Auto) (1.2-5.4) K/mm3 [place] # (Auto) (0.0-0.8) K/mm3 Eos # (Auto) (0.0-0.4) K/mm3 Baso # (Auto) (0.0-0.1) K/mm3 Seg Neutrophils % (40.0-70.0) % Seg Neutrophils # (1.8-7.7) K/mm3 Sodium (137-145) mmol/L Potassium (3.6-5.0) mmol/L Chloride (98-107) mmol/L Carbon Dioxide (22-30) mmol/L Anion Gap mmol/L BUN (7-17) mg/dL Creatinine (0.6-1.2) mg/dL Estimated GFR ml/min BUN/Creatinine Ratio % Glucose (65-100) mg/dL Calcium (8.4-10.2) mg/dL Magnesium (1.7-2.3) mg/dL Total Bilirubin (0.1-1.2) mg/dL AST (5-40) units/L ALT (7-56) units/L Alkaline Phosphatase (35-129) units/L Total Creatine Kinase (30-135) units/L Total Protein (6.3-8.2) g/dL Albumin (3.9-5) g/dL Albumin/Globulin Ratio % TSH (0.270-4.200) mlU/mL Free T4 (0.76-1.46) ng/dL HCG, Quant (0-4) mIU/mL Urine Color Straw (Yellow) Urine Turbidity Clear (Clear) Urine pH 8.0 H (5.0-7.0) Ur Specific Shorter 1.009 (1.003-1.030) Urine Protein <15 mg/dl (Negative) mg/dL Urine Glucose (UA) Neg (Negative) mg/dL Urine Ketones Neg (Negative) mg/dL Urine Blood Neg (Negative) Urine Nitrite Neg (Negative) Urine Bilirubin Neg (Negative) Urine Urobilinogen < 2.0 (<2.0) mg/dL Ur Leukocyte Esterase Neg (Negative) Urine WBC (Auto) 0.0 (0.0-6.0) /HPF Urine RBC (Auto) 0.0 (0.0-6.0) /HPF U Epithel Cells (Auto) < 1.0 (0-13.0) /HPF Salicylates (2.8-20.0) mg/dL Acetaminophen 5.0 L (10.0-30.0) ug/mL Plasma/Serum Alcohol < 0.01 (0-0.07) % Vital Signs 09/17/21 09/17/21 09/17/21 20:08 20:30 21:43 Temperature 98.6 F 98.4 F Pulse Rate 102 H Respiratory 18 Rate Blood Pressure 129/88 [Left] O2 Sat by Pulse 99 100 Oximetry Lab Results 09/17/21 09/17/21 09/17/21 Range/Units 20:14 20:14 20:14 WBC 7.9 (4.5-11.0) K/mm3 RBC 3.78 (3.65-5.03) M/mm3 Hgb 10.4 (10.1-14.3) gm/dl Hct 32.7 (30.3-42.9) % MCV 87 (79-97) fl MCH 28 (28-32) pg MCHC 32 (30-34) % RDW 14.0 (13.2-15.2) % Plt Count 306 (140-440) K/mm3 Lymph % (Auto) 29.5 (13.4-35.0) % [place] % (Auto) 11.3 H (0.0-7.3) % Eos % (Auto) 1.3 (0.0-4.3) % Baso % (Auto) 0.3 (0.0-1.8) % Lymph # (Auto) 2.3 (1.2-5.4) K/mm3 [place] # (Auto) 0.9 H (0.0-0.8) K/mm3 Eos # (Auto) 0.1 (0.0-0.4) K/mm3 Baso # (Auto) 0.0 (0.0-0.1) K/mm3 Seg Neutrophils % 57.6 (40.0-70.0) % Seg Neutrophils # 4.5 (1.8-7.7) K/mm3 Sodium 140 (137-145) mmol/L Potassium 4.3 (3.6-5.0) mmol/L Chloride 102.6 (98-107) mmol/L Carbon Dioxide 24 (22-30) mmol/L Anion Gap 18 mmol/L BUN 9 (7-17) mg/dL Creatinine 0.6 (0.6-1.2) mg/dL Estimated GFR > 60 ml/min BUN/Creatinine Ratio 15 % Glucose 98 (65-100) mg/dL Calcium 9.3 (8.4-10.2) mg/dL Magnesium 1.90 (1.7-2.3) mg/dL Total Bilirubin 0.20 (0.1-1.2) mg/dL AST 21 (5-40) units/L ALT 10 (7-56) units/L Alkaline Phosphatase 66 (35-129) units/L Total Creatine Kinase 305 H (30-135) units/L Total Protein 7.0 (6.3-8.2) g/dL Albumin 3.9 (3.9-5) g/dL Albumin/Globulin Ratio 1.3 % TSH (0.270-4.200) mlU/mL Free T4 1.05 (0.76-1.46) ng/dL HCG, Quant (0-4) mIU/mL Urine Color (Yellow) Urine Turbidity (Clear) Urine pH (5.0-7.0) Ur Specific Shorter (1.003-1.030) Urine Protein (Negative) mg/dL Urine Glucose (UA) (Negative) mg/dL Urine Ketones (Negative) mg/dL Urine Blood (Negative) Urine Nitrite (Negative) Urine Bilirubin (Negative) Urine Urobilinogen (<2.0) mg/dL Ur Leukocyte Esterase (Negative) Urine WBC (Auto) (0.0-6.0) /HPF Urine RBC (Auto) (0.0-6.0) /HPF U Epithel Cells (Auto) (0-13.0) /HPF Salicylates (2.8-20.0) mg/dL Acetaminophen (10.0-30.0) ug/mL Plasma/Serum Alcohol (0-0.07) % 09/17/21 09/17/21 09/17/21 Range/Units 20:14 20:14 20:14 WBC (4.5-11.0) K/mm3 RBC (3.65-5.03) M/mm3 Hgb (10.1-14.3) gm/dl Hct (30.3-42.9) % MCV (79-97) fl MCH (28-32) pg MCHC (30-34) % RDW (13.2-15.2) % Plt Count (140-440) K/mm3 Lymph % (Auto) (13.4-35.0) % [place] % (Auto) (0.0-7.3) % Eos % (Auto) (0.0-4.3) % Baso % (Auto) (0.0-1.8) % Lymph # (Auto) (1.2-5.4) K/mm3 [place] # (Auto) (0.0-0.8) K/mm3 Eos # (Auto) (0.0-0.4) K/mm3 Baso # (Auto) (0.0-0.1) K/mm3 Seg Neutrophils % (40.0-70.0) % Seg Neutrophils # (1.8-7.7) K/mm3 Sodium (137-145) mmol/L Potassium (3.6-5.0) mmol/L Chloride (98-107) mmol/L Carbon Dioxide (22-30) mmol/L Anion Gap mmol/L BUN (7-17) mg/dL Creatinine (0.6-1.2) mg/dL Estimated GFR ml/min BUN/Creatinine Ratio % Glucose (65-100) mg/dL Calcium (8.4-10.2) mg/dL Magnesium (1.7-2.3) mg/dL Total Bilirubin (0.1-1.2) mg/dL AST (5-40) units/L ALT (7-56) units/L Alkaline Phosphatase (35-129) units/L Total Creatine Kinase (30-135) units/L Total Protein (6.3-8.2) g/dL Albumin (3.9-5) g/dL Albumin/Globulin Ratio % TSH 2.240 (0.270-4.200) mlU/mL Free T4 (0.76-1.46) ng/dL HCG, Quant < 2 (0-4) mIU/mL Urine Color (Yellow) Urine Turbidity (Clear) Urine pH (5.0-7.0) Ur Specific Shorter (1.003-1.030) Urine Protein (Negative) mg/dL Urine Glucose (UA) (Negative) mg/dL Urine Ketones (Negative) mg/dL Urine Blood (Negative) Urine Nitrite (Negative) Urine Bilirubin (Negative) Urine Urobilinogen (<2.0) mg/dL Ur Leukocyte Esterase (Negative) Urine WBC (Auto) (0.0-6.0) /HPF Urine RBC (Auto) (0.0-6.0) /HPF U Epithel Cells (Auto) (0-13.0) /HPF Salicylates < 0.3 L (2.8-20.0) mg/dL Acetaminophen (10.0-30.0) ug/mL Plasma/Serum Alcohol (0-0.07) % 09/17/21 09/17/21 09/17/21 Range/Units 20:14 20:14 20:30 WBC (4.5-11.0) K/mm3 RBC (3.65-5.03) M/mm3 Hgb (10.1-14.3) gm/dl Hct (30.3-42.9) % MCV (79-97) fl MCH (28-32) pg MCHC (30-34) % RDW (13.2-15.2) % Plt Count (140-440) K/mm3 Lymph % (Auto) (13.4-35.0) % [place] % (Auto) (0.0-7.3) % Eos % (Auto) (0.0-4.3) % Baso % (Auto) (0.0-1.8) % Lymph # (Auto) (1.2-5.4) K/mm3 [place] # (Auto) (0.0-0.8) K/mm3 Eos # (Auto) (0.0-0.4) K/mm3 Baso # (Auto) (0.0-0.1) K/mm3 Seg Neutrophils % (40.0-70.0) % Seg Neutrophils # (1.8-7.7) K/mm3 Sodium (137-145) mmol/L Potassium (3.6-5.0) mmol/L Chloride (98-107) mmol/L Carbon Dioxide (22-30) mmol/L Anion Gap mmol/L BUN (7-17) mg/dL Creatinine (0.6-1.2) mg/dL Estimated GFR ml/min BUN/Creatinine Ratio % Glucose (65-100) mg/dL Calcium (8.4-10.2) mg/dL Magnesium (1.7-2.3) mg/dL Total Bilirubin (0.1-1.2) mg/dL AST (5-40) units/L ALT (7-56) units/L Alkaline Phosphatase (35-129) units/L Total Creatine Kinase (30-135) units/L Total Protein (6.3-8.2) g/dL Albumin (3.9-5) g/dL Albumin/Globulin Ratio % TSH (0.270-4.200) mlU/mL Free T4 (0.76-1.46) ng/dL HCG, Quant (0-4) mIU/mL Urine Color Straw (Yellow) Urine Turbidity Clear (Clear) Urine pH 8.0 H (5.0-7.0) Ur Specific Shorter 1.009 (1.003-1.030) Urine Protein <15 mg/dl (Negative) mg/dL Urine Glucose (UA) Neg (Negative) mg/dL Urine Ketones Neg (Negative) mg/dL Urine Blood Neg (Negative) Urine Nitrite Neg (Negative) Urine Bilirubin Neg (Negative) Urine Urobilinogen < 2.0 (<2.0) mg/dL Ur Leukocyte Esterase Neg (Negative) Urine WBC (Auto) 0.0 (0.0-6.0) /HPF Urine RBC (Auto) 0.0 (0.0-6.0) /HPF U Epithel Cells (Auto) < 1.0 (0-13.0) /HPF Salicylates (2.8-20.0) mg/dL Acetaminophen 5.0 L (10.0-30.0) ug/mL Plasma/Serum Alcohol < 0.01 (0-0.07) % - EKG Data -: EKG Interpreted by Or EKG shows normal: sinus rhythm Rate: normal - EKG Data 09/17/21 21:49 The EKG is interpreted at 21: 36 Sinus rhythm, rate 98 bpm. Normal axis, normal P wave axis, QTC 4 5 3 ms. Not a STEMI. - Radiology Data Radiology results: report reviewed, image reviewed CT head/brain wo con INDICATION / CLINICAL INFORMATION: 36 years Female; headache. TECHNIQUE: Routine CT head without contrast. All CT scans at this location are performed using CT dose reduction for ALARA by means of automated exposure control. COMPARISON: None. FINDINGS: BRAIN / INTRACRANIAL CONTENTS: No acute hemorrhage, mass effect, midline shift, hydrocephalus, or acute, large territorial infarct. No signs of significant atrophy or chronic infarct. No significant white matter abnormality seen. CRANIOCERVICAL JUNCTION: No significant abnormality. ORBITS: No significant abnormality of visualized or bits. SINUSES / MASTOIDS: Visualized paranasal sinuses and mastoid air cells are essentially clear. ADDITIONAL FINDINGS: None. IMPRESSION: 1. No focal mass, hemorrhage, hydrocephalus, or acute, large territorial infarct. Signer Name: Mauricio Woods MD, III Signed: 09/17/2021 8:13 PM Workstation Name: [facility] Critical care attestation.: If time is entered above; I have spent that time in minutes in the direct care of this critically ill patient, excluding procedure time. ED Disposition Clinical Impression: Headache, Encounter for medical screening examination, Encounter for behavioral health screening Disposition: [address] [place] [address] Is pt being admited?: No Does the pt Need Aspirin: No Condition: Good Additional Instructions: The patient was not found to have an emergent medical condition present in the emergency room today. The patient's presentation today is not consistent with allergic or anaphylactic or anaphylactoid reaction. Recommend follow-up with your outpatient primary care doctor, psychiatrist, or neurologist. Recommend follow-up within the next 3 to 7 days Please return to the emergency room right away with new pain, worsened pain, migration of pain, projectile vomiting, change in mental status, confusion, inability tolerate liquid feeds, new, worsened or different symptoms not present on the initial emergency room evaluation Referrals: KATJA MOROCHO MD [Referring] - 3-5 Days NAMITA PEDROZA MD [Staff Physician] - 3-5 Days [facility] [Outside] - 3-5 Days
[2021-09-17 21:00] LABS: Alanine Aminotransferase 10 units/L (7-56); Albumin 3.9 g/dL (3.9-5); Blood Urea Nitrogen 9 mg/dL (7-17); Calcium 9.3 mg/dL (8.4-10.2); Hemolysis Index 67
[2021-09-17 21:05] LABS: Basophils % (Auto) 0.3 % (0.0-1.8); Eosinophils # (Auto) 0.1 K/mm3 (0.0-0.4); Eosinophils % (Auto) 1.3 % (0.0-4.3); Hematocrit 32.7 % (30.3-42.9); Hemoglobin 10.4 gm/dl (10.1-14.3); Lymphocytes # (Auto) 2.3 K/mm3 (1.2-5.4); Lymphocytes % (Auto) 29.5 % (13.4-35.0); Mean Corpuscular HGB Conc 32 % (30-34); Mean Corpuscular Volume 87 fl (79-97); Monocytes # (Auto) 0.9 K/mm3 (0.0-0.8); Monocytes % (Auto) 11.3 % (0.0-7.3); Platelet Count 306 K/mm3 (140-440); Red Blood Count 3.78 M/mm3 (3.65-5.03)
[2021-09-17 21:15] LABS: BUN/Creatinine Ratio 15
--- NOTE | 2021-09-17 21:17 | Cat Scan Report ---
. CT head/brain wo con INDICATION / CLINICAL INFORMATION: 36 years Female; headache. TECHNIQUE: Routine CT head without contrast. All CT scans at this location are performed using CT dos e reduction for ALARA by means of automated exposure control. COMPARISON: None. FINDINGS: BRAIN / INTRACRANIAL CONTENTS: No acute hemorrhage, mass effect, midline shift, hydrocephalus, or acu te, large territorial infarct. No signs of significant atrophy or chronic infarct. No significant whi te matter abnormality seen. CRANIOCERVICAL JUNCTION: No significant abnormality. ORBITS: No significant abnormality of visualized orbits. SINUSES / MASTOIDS: Visualized paranasal sinuses and mastoid air cells are essentially clear. ADDITIONAL FINDINGS: None. IMPRESSION: 1. No focal mass, hemorrhage, hydrocephalus, or acute, large territorial infarct. Signer Name: Mauricio Woods MD, III Signed: 09/17/2021 9:13 PM Workstation Name: [id number]
[2021-09-17 21:24] LABS: Bilirubin,Urine NEG (Negative); Blood,Urine NEG (Negative); Color,Urine Straw (Yellow); Protein,Urine <15 mg/dL mg/dL (Negative); Urobilinogen,Urine < 2.0 mg/dL (<2.0)
[2021-09-18 06:40] VITALS: BP 116/67
--- NOTE | 2021-09-18 06:42 | Emergency Department Report ---
Blank Doc - Documentation Documentation: This patient presented last night from [facility] with concern for a possible a llergic reaction to the medications that she was on from [facility]. Apparently she was there voluntarily for hallucinations. She had a medical clearance in our emergency department and her labs have been reviewed and have been unremarkable. I was approached to fill out a 1013 on the patient as EMS says that this was necessary for them to transport her back to [facility]. However, I have reviewed her ED chart from my colleague and the patient has not expressed any suicidal or homicidal ideations, or expressed any behavior concerning for acute psychosis. I went to see the patient myself and she is awake, alert, oriented, calm and appropriate. She denies any suicidal or homicidal ideations. The patient was not sent as a 1013 and there are no staff members from [facility] present as a sitter, which usually occurs when the patient is involuntary or any 1013. Therefore, patient does not meet criteria to be made a 1013 for involuntary transfer back to [facility]. She was given the options of voluntary transfer back to [facility] versus discharge from the emergency department and the patient has chosen to be discharged from the emergency department. Vital signs reassuring including being afebrile. Patient is seen ambulatory in the emergency department and both appears and feels stable.
--- NOTE | 2021-09-18 11:44 | Electrocardiograph Report ---
[facility] Test Date: 2021-09-17 Test Time: 21:36:45 Pat Name: JEAN RIVERA Department: Room: Gender: F [employer]: YVONNE : 1985 Requested By: STARLA PENA Order Number: [id number] Reading MD: Luz Johnson Measurements Intervals [place] Rate: 98 P: 74 TN: 148 QRS: 58 QRSD: 86 T: 47 QT: 354 QTc: 453 Interpretive Statements Sinus rhythm Consider left ventricular hypertrophy Compared to ECG 08/12/2021 20:24:02 No significant changes Electronically Signed On 09-18-2021 11:44:47 EST by Luz Johnson
== END 2021-09-18 06:56 | disposition home or self-care (01) ==
LOC: ED 19:11
DX: Z13.30 Encounter for screening examination for mental health and behavioral disorders, unspecified (principal); I10 Essential (primary) hypertension; E11.9 Type 2 diabetes mellitus without complications; K21.9 Gastro-esophageal reflux disease without esophagitis; G43.909 Migraine, unspecified, not intractable, without status migrainosus; Z98.890 Other specified postprocedural states; Z87.891 Personal history of nicotine dependence
CPT/HCPCS: 36415; 70450; 80053; 81001; 82550; 83735; 84439; 84443; 84702; 85025; 93005; 93010; 96374; 99284; J2060; 80320; G0480

== ENCOUNTER 2022-04-18 08:30 | Emergency (ER) | payer MEDICAID ==
[2022-04-18 08:47] VITALS: BP 123/83
== END 2022-04-18 09:00 | disposition left against medical advice (07) ==
LOC: ED 08:30
DX: R44.3 Hallucinations, unspecified (principal); Z53.21 Procedure and treatment not carried out due to patient leaving prior to being seen by health care provider